=== PATIENT | female | born 1975 | race Caucasian/White ===

== ENCOUNTER 2016-11-03 15:59 | Emergency (ER) | payer MEDICAID ==
[2016-11-03] MEDS ORDERED: DIPHENOX/ATROPINE 2.5/0.025 MG TABLET PO STA (17:43)
[2016-11-03] MEDS ORDERED: traMADol 50 MG TABLET PO STA (17:43)
[2016-11-03] MEDS ORDERED: traMADol 50 MG TABLET PO ONE (17:45)
[2016-11-03] MEDS ORDERED: DIPHENOX/ATROPINE 2.5/0.025 MG TABLET PO ONE (17:45)
== END 2016-11-03 18:02 | disposition home or self-care (01) ==
DX: R19.7 Diarrhea, unspecified (principal); R10.9 Unspecified abdominal pain; K02.9 Dental caries, unspecified; F17.200 Nicotine dependence, unspecified, uncomplicated
CPT/HCPCS: 87045; 87046; 87077; 99283; A9270

== ENCOUNTER 2016-11-06 13:35 | Emergency (ER) | payer MEDICAID ==
[2016-11-06] MEDS ORDERED: DICYCLOMINE 10 MG CAPSULE PO STA (14:11)
[2016-11-06] MEDS ORDERED: GABAPENTIN 100 MG CAPSULE PO STA (14:11)
[2016-11-06] MEDS ORDERED: DIPHENOX/ATROPINE 2.5/0.025 MG TABLET PO STA (14:11)
[2016-11-06] MEDS ORDERED: oxyCOD/ACETAMIN 5 MG/325 MG TABLET PO ONE (14:21)
[2016-11-06] MEDS ORDERED: DIPHENOX/ATROPINE 2.5/0.025 MG TABLET PO ONE (14:21)
[2016-11-06] MEDS ORDERED: DICYCLOMINE 10 MG CAPSULE PO ONE (14:21)
[2016-11-06] MEDS: oxyCOD/ACETAMIN 5 MG/325 MG TABLET PO STA (14:23)
[2016-11-06] MEDS ORDERED: GABAPENTIN 400 MG CAPSULE PO STA (14:23)
== END 2016-11-06 14:55 | disposition home or self-care (01) ==
DX: R10.9 Unspecified abdominal pain (principal); R19.7 Diarrhea, unspecified; G89.29 Other chronic pain; F17.200 Nicotine dependence, unspecified, uncomplicated
CPT/HCPCS: 99283; A9270

== ENCOUNTER 2016-11-20 17:33 | Emergency (ER) | payer MEDICAID ==
[2016-11-20] MEDS ORDERED: oxyCOD/ACETAMIN 5 MG/325 MG TABLET PO STA (19:01)
[2016-11-20] MEDS ORDERED: oxyCOD/ACETAMIN 5 MG/325 MG TABLET PO ONE (19:24)
[2016-11-20] MEDS ORDERED: IOPAMIDOL-300 100 ML VIAL IVP ONE (20:16)
[2016-11-20] MEDS ORDERED: GI COCKTAIL 120 ML BOTTLE PO STA (20:34)
[2016-11-20] MEDS ORDERED: LIDOCAINE VISCOUS 2% 15 ML UDC MM STA (20:43)
[2016-11-20] MEDS ORDERED: MAG HYDROX/AL HYDROX/SIMETH 30 ML UDC PO STA (20:43)
[2016-11-20] MEDS ORDERED: LIDOCAINE VISCOUS 2% 15 ML UDC MM ONE (20:50)
[2016-11-20] MEDS ORDERED: MAG HYDROX/AL HYDROX/SIMETH 30 ML UDC ONE (20:50)
== END 2016-11-20 21:42 | disposition home or self-care (01) ==
DX: R10.32 Left lower quadrant pain (principal); D72.829 Elevated white blood cell count, unspecified; K58.9 Irritable bowel syndrome, unspecified; M79.7 Fibromyalgia; Z90.710 Acquired absence of both cervix and uterus; F17.200 Nicotine dependence, unspecified, uncomplicated
CPT/HCPCS: 36415; 74177; 80053; 81003; 83690; 85025; 99283; 99284; A9270; Q9967

== ENCOUNTER 2016-12-14 13:34 | Emergency (ER) | payer MEDICAID ==
--- NOTE | 2016-12-14 14:18 | ED Physician Documentation ---
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 She is able walk and bear weight. No other injuries.) Review of Systems Constitutional: denies: Fever, Chills GI: denies: Abdominal Pain, Nausea : reports: Hysterectomy. denies: Now [facility] PD PAST MEDICAL HISTORY - Past Medical History Cardiovascular: None Respiratory: Pneumonia Neuro: None Endocrine/Autoimmune: Other GI: Other ACCOUNT LIAISON: Ovarian cysts HEENT: None Psych: Depression Musculoskeletal: Osteoarthritis, Fibromyalgia - Past Surgical History Past Surgical History: Yes /ACCOUNT LIAISON: Hysterectomy, Oophrectomy - Present Medications Home Medications: Ambulatory Orders Medication Instructions Recorded Confirmed Gabapentin [Neurontin] 1,600 mg PO TID 11/02/15 11/06/16 Albuterol Sulfate [Ventolin Hfa] 2 puffs IH Q6H PRN #1 hfa.aer.ad 04/03/1611/06 Dicyclomine [Bentyl] 20 mg PO QID PRN #20 capsule 11/03/16 11/06/16 Cyclobenzaprine HCl 11/20/16 Hyoscyamine Sulfate [Levsin-Sl] 0.125 mg SL Q6H PRN #15 tab.subl 11/20/16 Meloxicam [Mobic] 7.5 mg PO BIDWM PRN #15 tablet 11/20/16 - Allergies Allergies/Adverse Reactions: Allergies Allergy/AdvReac Type Severity Reaction Status Date / Time codeine [Codeine] Allergy Mild swelling/it Verified 11/06/16 13:41 ch NSAIDS (Non-Steroidal Allergy Unknown Verified 11/06/16 13:41 Anti-Inflamma - Social History Does the pt smoke?: Yes Smoking Status: Current every day smoker Does the pt drink ETOH?: No Does the pt have substance abuse?: No - Immunizations Immunizations are current?: Yes - POLST Patient has POLST: No PD ED PE NORMAL - Vitals Vital signs reviewed: Yes - General General: Alert and oriented X 3, No acute distress - Derm Derm: Normal color, Warm and dry - Extremities Extremities: Other (The knee is diffusely tender without an effusion. I think I do feel some MCL laxity and I am unable to check grind testing due to pain.) - Neuro Neuro: Alert and oriented X 3, Normal speech - Psych Psych: Normal mood, Normal affect Results - Vitals Vitals: Vital Signs - 24 hr 12/14/16 13:41 Temperature 37.4 C Heart Rate 103 H Respiratory 20 Rate Blood Pressure 117/83 H O2 Saturation 99 Oxygen O2 Source Room air PD MEDICAL DECISION MAKING - ED course Complexity details: reviewed old records (frequent ED visits with many concerns for drug seeking behavior) Departure - Departure Disposition: Home, Self Care Clinical Impression: Contusion of right knee Qualifiers: Encounter type: initial encounter Qualified Code(s): S80.01XA - Contusion of right knee, initial encounter Condition: Good Record reviewed to determine appropriate education?: Yes Instructions: ED Knee Pain [facility] Follow-Up: [facility] [Provider Group] - Within 1 week Comments: Your blood pressure was elevated today on check in to the emergency department. This does not mean that you have hypertension, it is a common phenomenon to check into the emergency department and have elevated blood pressure. I recommend that you see your primary care physician within the week to have it rechecked when you're feeling better.
[2016-12-14] MEDS ORDERED: HYDROcod/ACETAM 5/325 MG TABLET ONE (14:23)
[2016-12-14] MEDS: HYDROcod/ACETAM 5/325 MG TABLET PO STA (14:30)
[2016-12-14] MEDS: oxyCOD/ACETAMIN 5 MG/325 MG TABLET PO STA (14:30)
--- NOTE | 2016-12-14 15:08 | XRAY Preliminary Report ---
Exam: XR Knee 4 View RT IMPRESSION: Mild patellar spurring. Otherwise negative. [facility] SITE ID: [id number]
--- NOTE | 2016-12-14 15:11 | XRAY Report ---
EXAM: Right Knee Radiography EXAM DATE: 12/14/2016 02:21 PM. CLINICAL HISTORY: Knee pain, injury. COMPARISON: 02/09/2016. TECHNIQUE: 4 views. FINDINGS: Bones: There is mild spurring and ossification of the superior lateral aspect of the patella. No mireille ical step-off or fracture. No destructive bony abnormality. Joints: Alignment and joint space appears normal. No joint effusion. Soft Tissues: Normal. No soft tissue swelling. IMPRESSION: Mild patellar spurring. Otherwise negative. [facility] Referring Provider Line: [phone] SITE ID: [id number]
[2016-12-14 15:33] VITALS: BP 123/85
== END 2016-12-14 15:33 | disposition home or self-care (01) ==
LOC: ED 13:34
DX: S80.01XA Contusion of right knee, initial encounter (principal); W01.0XXA Fall on same level from slipping, tripping and stumbling without subsequent striking against object, initial encounter; Y92.019 Unspecified place in single-family (private) house as the place of occurrence of the external cause; M76.51 Patellar tendinitis, right knee; M19.90 Unspecified osteoarthritis, unspecified site; M79.7 Fibromyalgia; F17.200 Nicotine dependence, unspecified, uncomplicated
CPT/HCPCS: 99283

== ENCOUNTER 2017-02-13 05:24 | Outpatient (CLI) | payer MEDICAID | END 2017-02-13 05:25 | disposition critical access hospital (66) | DX: R06.02 Shortness of breath (principal); R05 Cough | CPT/HCPCS: A0425; A0429 ==

== ENCOUNTER 2017-02-13 05:44 | Emergency (ER) | payer MEDICAID ==
[2017-02-13 05:51] VITALS: BP 121/96
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
--- NOTE | 2017-02-13 06:54 | XRAY Preliminary Report ---
Exam: XR Chest 2 View PA/LAT IMPRESSION: 1. Bronchial wall thickening. This can be seen with bronchitis or reactive airways disease. 2. Focal right middle lobe opacity suspicious for pneumonia. [facility] SITE ID: [id number]
--- NOTE | 2017-02-13 06:56 | XRAY Report ---
EXAM: CHEST RADIOGRAPHY EXAM DATE: 02/13/2017 06:42 AM. CLINICAL HISTORY: Cough, dyspnea. COMPARISON: None. TECHNIQUE: 2 views. FINDINGS: Lungs/Pleura: Bronchial wall thickening. Right middle lobe infiltrate. Large lung volumes. No signifi cant pleural effusion. No pneumothorax. Mediastinum: Heart and mediastinal contours are unremarkable. Other: None. IMPRESSION: 1. Bronchial wall thickening. This can be seen with bronchitis or reactive airways disease. 2. Focal right middle lobe opacity suspicious for pneumonia. [facility] Referring Provider Line: [phone] SITE ID: [id number]
[2017-02-13] MEDS ORDERED: GABAPENTIN 100 MG CAPSULE PO STA (07:18)
[2017-02-13] MEDS ORDERED: DICYCLOMINE 10 MG CAPSULE PO STA (07:19)
[2017-02-13] MEDS ORDERED: AMOX/CLAV 875 MG/125 MG TABLET PO STA (07:19)
[2017-02-13] MEDS ORDERED: DICYCLOMINE 10 MG CAPSULE PO ONE (07:32)
[2017-02-13] MEDS ORDERED: AMOX/CLAV 875 MG/125 MG TABLET PO ONE (07:32)
[2017-02-13] MEDS ORDERED: GABAPENTIN 300 MG CAPSULE ONE (07:33)
== END 2017-02-13 07:55 | disposition home or self-care (01) ==
LOC: EDUNIT# → ED 05:44
DX: J18.9 Pneumonia, unspecified organism (principal); M19.90 Unspecified osteoarthritis, unspecified site; M79.7 Fibromyalgia; F17.200 Nicotine dependence, unspecified, uncomplicated
CPT/HCPCS: 71020; 99283

== ENCOUNTER 2017-04-04 20:11 | Outpatient (CLI) | payer MEDICAID | END 2017-04-04 20:12 | disposition EMS.NT | LOC: EMS 20:11 | PROVIDERS: ATTEND Surgery | DX: M54.2 Cervicalgia (principal) ==

== ENCOUNTER 2017-05-13 18:54 | Outpatient (CLI) | payer MEDICAID | END 2017-05-13 18:55 | disposition critical access hospital (66) | LOC: EMS 18:54 | PROVIDERS: ATTEND Surgery | DX: R50.9 Fever, unspecified (principal) | CPT/HCPCS: A0425; A0429 ==

== ENCOUNTER 2017-05-13 19:10 | Emergency (ER) | payer MEDICAID ==
[2017-05-13 19:23] VITALS: BP 116/79
[2017-05-13] MEDS ORDERED: SULFAMETH/TRIMETH DS 800/160 MG TABLET PO STA (19:50)
--- NOTE | 2017-05-13 19:52 | ED Physician Documentation ---
History of Present Illness - Stated complaint Stated Complaint: SORES/MRSA - Chief complaint Chief Complaint: Wound - History obtained from History obtained from: Patient - History of Present Illness Timing: How many days ago (several) Pain level max: 0 Pain level now: 0 Improved by: nothing Worsened by: nothing - Treatment prior to arrival Treatment prior to arrival: Patient is a 42-year-old female who states that she has recurrent sores all over her body, mainly on the right side of her neck, the bilateral arms. Denies any fever. Has spent the last 8 days in correction. States has a history of similar infections with MRSA. 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: Hysterectomy, Oophrectomy - Present Medications Home Medications: Ambulatory Orders Medication Instructions Recorded Confirmed Gabapentin [Neurontin] 1,600 mg PO TID 11/02/15 02/13/17 Albuterol Sulfate [Ventolin Hfa] 2 puffs IH Q6H PRN #1 hfa.aer.ad 04/03/1602/13 Dicyclomine [Bentyl] 20 mg PO QID PRN #20 capsule 11/03/16 02/13/17 Cyclobenzaprine HCl 11/20/16 Hyoscyamine Sulfate [Levsin-Sl] 0.125 mg SL Q6H PRN #15 tab.subl 11/20/16 Amox/Clav 875/125 [Augmentin 1 tab PO BID #13 tablet 02/13/17 875/125] Sulfamethox/Trimeth 800/160 1 each PO BID #14 tablet 05/13/17 [Bactrim Ds 800/160] - Allergies Allergies/Adverse Reactions: Allergies Allergy/AdvReac Type Severity Reaction Status Date / Time codeine [Codeine] Allergy Mild swelling/it Verified 11/06/16 13:41 ch NSAIDS (Non-Steroidal Allergy Unknown Verified 11/06/16 13:41 Anti-Inflamma - Social History Does the pt smoke?: Yes Smoking Status: Current every day smoker Does the pt drink ETOH?: No Does the pt have substance abuse?: No - Immunizations Immunizations are current?: Yes - POLST Patient has POLST: No PD ED PE NORMAL - Vitals Vital signs reviewed: Yes - General General: Alert and oriented X 3, No acute distress - HEENT HEENT: Moist mucous membranes - Neck Neck: Supple, no meningeal sign - Cardiac Cardiac: RRR - Respiratory Respiratory: No respiratory distress, Clear bilaterally - Abdomen Abdomen: Soft, Non tender - Derm Derm: Warm and dry - Extremities Extremities: Other (Multiple small open sores with surrounding mild cellulitis mainly along the bilateral forearms in the right, posterior aspect of the neck. No drainable abscesses.) - Neuro Neuro: Alert and oriented X 3 - Psych Psych: Normal mood, Normal affect Results - Vitals Vitals: Vital Signs - 24 hr 05/13/17 19:20 Temperature 37 C Heart Rate 104 H Respiratory 12 Rate Blood Pressure 116/79 O2 Saturation 98 Oxygen O2 Source Room air PD MEDICAL DECISION MAKING - ED course Complexity details: considered differential, d/w patient ED course: Patient with multiple sores, concern for secondary MRSA infection. Will place on Bactrim. She has chlorhexidine to bathe herself in as well. She is well- appearing, nontoxic. Afebrile. Patient counseled regarding signs and symptoms for which I believe and urgent re-evaluation would be necessary. Patient with good understanding of and agreement to plan and is comfortable going home at this time This document was made in part using voice recognition software. While efforts are made to proofread this document, sound alike and grammatical errors may occur. Departure - Departure Disposition: 01 Home, Self Care Clinical Impression: Cellulitis Qualifiers: Site of cellulitis: unspecified site Qualified Code(s): L03.90 - Cellulitis, unspecified Condition: Good Instructions: ED Infec Skin Cellulitis Follow-Up: Norma Treviño MD [Primary Care Provider] - Within 1 week Prescriptions: Sulfamethox/Trimeth 800/160 [Bactrim Ds 800/160] 1 each PO BID #14 tablet Comments: Take all antibiotics until gone. Return if you worsen. Discharge Date/Time: 05/13/17 20:03
[2017-05-13] MEDS ORDERED: SULFAMETH/TRIMETH DS 800/160 MG TABLET PO ONE (20:02)
== END 2017-05-13 20:03 | disposition home or self-care (01) ==
LOC: EDUNIT# → EDBD → ED 19:10
DX: L03.90 Cellulitis, unspecified (principal); M79.7 Fibromyalgia; M19.90 Unspecified osteoarthritis, unspecified site; F17.200 Nicotine dependence, unspecified, uncomplicated
CPT/HCPCS: 99283; A9270

== ENCOUNTER 2017-07-23 14:09 | Emergency (ER) | payer MEDICAID ==
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
[2017-07-23] MEDS ORDERED: LIDOCAINE OINTMENT 5% 35.44 GM TUBE TOP STA (14:50)
[2017-07-23] MEDS ORDERED: DOXYCYCLINE 100 MG TABLET PO STA (14:50)
[2017-07-23] MEDS ORDERED: HYDROcod/ACETAM 5/325 MG TABLET PO STA (14:50)
[2017-07-23] MEDS ORDERED: MAG HYDROX/AL HYDROX/SIMETH 30 ML UDC PO STA (14:50)
[2017-07-23] MEDS ORDERED: HYDROcod/ACETAM 5/325 MG TABLET ONE (15:02)
[2017-07-23] MEDS ORDERED: DOXYCYCLINE 100 MG TABLET PO ONE (15:02)
[2017-07-23] MEDS ORDERED: MAG HYDROX/AL HYDROX/SIMETH 30 ML UDC ONE (15:03)
[2017-07-23] MEDS ORDERED: LIDOCAINE OINTMENT 5% 35.44 GM TUBE ONE (15:03)
[2017-07-23 15:29] LABS: BASOPHILS # (AUTO) 0.1 10^3/uL (0.0-0.1); BASOPHILS % (AUTO) 0.4 %; EOSINOPHILS # (AUTO) 0.2 10^3/uL (0.0-0.7); HCT - HEMATOCRIT 39.9 % (37.0-47.0); HGB - HEMOGLOBIN 13.5 g/dL (12.0-16.0); LYMPHOCYTES # (AUTO) 2.4 10^3/uL (1.5-3.5); LYMPHOCYTES % (AUTO) 13.1 %; MEAN CORPUSCULAR HEMOGLOBIN 29.2 pg (27.0-31.0); MEAN CORPUSCULAR HGB CONC 33.8 g/dL (32.0-36.0); MEAN CORPUSCULAR VOLUME 86.5 fL (81.0-99.0); MEAN PLATELET VOLUME 7.6 fL (7.9-10.8); MONOCYTES # (AUTO) 1.1 10^3/uL (0.0-1.0); MONOCYTES % (AUTO) 6.2 %; NEUTROPHILS # (AUTO) 14.4 10^3/uL (1.5-6.6); NEUTROPHILS % (AUTO) 79.3 %; RED BLOOD COUNT 4.62 10^6/uL (4.20-5.40); RED CELL DISTRIBUTION WIDTH 14.2 % (12.0-15.0); UNCORRECTED WHITE BLOOD COUNT 18.2 x10^3/uL; WHITE BLOOD COUNT 18.2 x10^3/uL (4.8-10.8)
[2017-07-23 15:43] LABS: ACETAMINOPHEN < 10 ug/mL (10-30); ALBUMIN/GLOBULIN RATIO 1.3 (1.0-2.2); BILIRUBIN,TOTAL 0.6 mg/dL (0.2-1.0); BUN - BLOOD UREA NITROGEN 23 mg/dL (6-20); CARBON DIOXIDE - CO2 27 mmol/L (21-32); CHLORIDE 102 mmol/L (101-111); CREATININE 0.6 mg/dL (0.4-1.0); GFR - MDRD 110 (>89); GLUCOSE 111 mg/dL (70-100); LIPASE 30 U/L (22-51); POTASSIUM 4.2 mmol/L (3.5-5.0); SALICYLATE < 6.0 mg/dL; SODIUM 136 mmol/L (135-145); TOTAL PROTEIN 8.3 g/dL (6.7-8.2)
[2017-07-23 16:18] LABS: BILIRUBIN,URINE NEGATIVE (NEGATIVE); PH,URINE 6.5 PH (5.0-7.5)
[2017-07-23 16:35] LABS: UA w/ MICROSCOPIC CHARGE YES
[2017-07-23 16:36] LABS: HCG UR QUAL NEGATIVE
[2017-07-23 16:44] LABS: UR CULTURE IF IND NOT INDICATED; WBC,URINE 0-3 /HPF (0-5)
[2017-07-23 17:07] VITALS: BP 128/80
== END 2017-07-23 17:21 | disposition home or self-care (01) ==
LOC: ED 14:09
DX: L08.9 Local infection of the skin and subcutaneous tissue, unspecified (principal); M79.672 Pain in left foot; M79.671 Pain in right foot; Z59.0 Homelessness; F17.200 Nicotine dependence, unspecified, uncomplicated
CPT/HCPCS: 36415; 80053; 80306; 80307; 80320; 80329; 81001; 81025; 83690; 84443; 85025; 99283; A9270; 81003; 87086

== ENCOUNTER 2017-11-20 00:34 | Emergency (ER) | payer MEDICAID ==
--- NOTE | 2017-11-20 02:09 | ED Physician Documentation ---
History of Present Illness - Stated complaint Stated Complaint: FEELING COLD - Chief complaint Chief Complaint: General - History obtained from History obtained from: Patient - History of Present Illness Timing: Today - Additonal information Additional information: patient is a 42 year old homeless female who got caught in the rain and is presenting to the emergency department for being cold. Patient denies any trauma or other symptoms. Review of Systems Constitutional: reports: Chills. denies: Fever Eyes: denies: Discharge, Irritation Ears: reports: Reviewed and negative Nose: reports: Reviewed and negative Throat: reports: Reviewed and negative Cardiac: denies: Chest pain / pressure Respiratory: reports: Cough GI: denies: Nausea, Vomiting : reports: Reviewed and negative Skin: reports: Rash Musculoskeletal: reports: Extremity pain, Extremity swelling Neurologic: reports: Reviewed and negative Psychiatric: reports: Anxiety, Insomnia PD PAST MEDICAL HISTORY - Past Medical History Past Medical History: Yes Cardiovascular: None Respiratory: Pneumonia Neuro: None Endocrine/Autoimmune: Other 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: Ovarian cysts HEENT: None Psych: Depression Musculoskeletal: Osteoarthritis, Fibromyalgia - Past Surgical History Past Surgical History: Yes /INSTRUCTION ASSISTANT PRINCIPAL: Hysterectomy, Oophrectomy - Present Medications Home Medications: Ambulatory Orders Medication Instructions Recorded Confirmed Gabapentin [Neurontin] 1,600 mg PO TID 11/02/15 02/13/17 Albuterol Sulfate [Ventolin Hfa] 2 puffs IH Q6H PRN #1 hfa.aer.ad 04/03/1602/13 Dicyclomine [Bentyl] 20 mg PO QID PRN #20 capsule 11/03/16 02/13/17 Cyclobenzaprine HCl 11/20/16 Doxycycline Monohydrate 100 mg PO BID #14 tablet 07/23/17 Lanolin 1 applic TP BID #397 oint...g. 07/23/17 Nystatin 1 applic TP BID #60 g 07/23/17 - Allergies Allergies/Adverse Reactions: Allergies Allergy/AdvReac Type Severity Reaction Status Date / Time codeine [Codeine] Allergy Mild swelling/it Verified 11/20/17 00:51 ch NSAIDS (Non-Steroidal Allergy Unknown Verified 11/20/17 00:51 Anti-Inflamma - Social History Does the pt smoke?: Yes Smoking Status: Current every day smoker Does the pt drink ETOH?: No Does the pt have substance abuse?: No - Immunizations Immunizations are current?: Yes - POLST Patient has POLST: No PD ED PE NORMAL - Vitals Vital signs reviewed: Yes - General General: Alert and oriented X 3, No acute distress - HEENT HEENT: Atraumatic, Moist mucous membranes - Neck Neck: Supple, no meningeal sign - Cardiac Cardiac: RRR - Respiratory Respiratory: No respiratory distress - Abdomen Abdomen: Soft PD ED PE EXPANDED - Derm Derm: Warm and dry, Pick león. No: Abscess - Extremities Extremities: Right foot, Left foot (mild trench foot of both feet, no superimposed infection) Results - Vitals Vitals: Vital Signs - 24 hr 11/20/17 11/20/17 00:35 01:43 Temperature 36.6 C Heart Rate 98 95 Respiratory 18 16 Rate Blood Pressure 152/112 H 121/81 H O2 Saturation 95 98 Oxygen O2 Source Room air PD MEDICAL DECISION MAKING - ED course Complexity details: reviewed old records, re-evaluated patient, considered differential, d/w patient ED course: Patient was seen and examined at bedside. patient's wet close had been removed and she was given warm blankets and dry socks. Patient's vital signs normalized and patient was stable for discharge with outpatient follow up. Departure - Departure Disposition: 01 Home, Self Care Clinical Impression: Trench feet Condition: Good Instructions: ED Hypothermia Prevention Follow-Up: [facility] [Provider Group] Comments: Your symptoms today are due to wet feet. it is important that you try to stay dry and change your socks regularly. You should follow up with the clinic for regular care.
[2017-11-20 02:43] VITALS: BP 125/68
== END 2017-11-20 02:44 | disposition home or self-care (01) ==
LOC: ED 00:34
DX: T69.022A Immersion foot, left foot, initial encounter (principal); T69.021A Immersion foot, right foot, initial encounter; X31.XXXA Exposure to excessive natural cold, initial encounter; F17.200 Nicotine dependence, unspecified, uncomplicated
CPT/HCPCS: 99281; 99283

== ENCOUNTER 2017-12-10 12:58 | Emergency (ER) | payer MEDICAID ==
[2017-12-10 13:11] VITALS: BP 130/79
[2017-12-10] MEDS ORDERED: CYCLOBENZAPRINE 10 MG TABLET PO STA (13:34)
[2017-12-10] MEDS ORDERED: GABAPENTIN 100 MG CAPSULE PO STA (13:34)
--- NOTE | 2017-12-10 13:37 | ED Physician Documentation ---
History of Present Illness - Stated complaint Stated Complaint: SHOULDER PX - Chief complaint Chief Complaint: General - History obtained from History obtained from: Patient - History of Present Illness Timing: Other (42-year-old woman who is homeless and has fibromyalgia with multiple complaints including 2 weeks worth of productive cough and shortness of breath without fevers. She is cold all the time but she is on the streets so I still doubt fevers. She also had her routine medications including gabapentin, Cymbalta and Flexeril stolen about a week and a half ago because of lack of transportation and her doctor being in [place] in a public clinic she has poor access to follow-up. 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: Ovarian cysts HEENT: None Psych: Depression Musculoskeletal: Osteoarthritis, Fibromyalgia - Past Surgical History Past Surgical History: Yes /POCKET MAKER: Hysterectomy, Oophrectomy - Present Medications Home Medications: Ambulatory Orders Medication Instructions Recorded Confirmed Gabapentin [Neurontin] 1,600 mg PO TID 11/02/15 02/13/17 Albuterol Sulfate [Ventolin Hfa] 2 puffs IH Q6H PRN #1 hfa.aer.ad 04/03/1602/13 Dicyclomine [Bentyl] 20 mg PO QID PRN #20 capsule 11/03/16 02/13/17 Cyclobenzaprine HCl 11/20/16 Doxycycline Monohydrate 100 mg PO BID #14 tablet 07/23/17 Lanolin 1 applic TP BID #397 oint...g. 07/23/17 Nystatin 1 applic TP BID #60 g 07/23/17 Albuterol Sulfate [Proventil Hfa 1 - 2 puffs IH Q4H PRN #1 12/10/17 Inhaler] hfa.aer.ad Benzonatate 200 mg PO TID PRN #20 capsule 02/24/18 Cyclobenzaprine [Flexeril] 10 mg PO TID PRN #14 tablet 12/10/17 DULoxetine [Cymbalta] 20 mg PO DAILY #10 capsule 12/10/17 Doxycycline Hyclate 100 mg PO BID #14 tablet 12/10/17 Gabapentin [Neurontin] 2 tab PO TID #40 tablet 12/10/17 Lidocaine Patch 5% [Lidoderm Patch] 1 each TOP DAILY #10 patch 12/10/17 Loperamide [Imodium] 2 mg PO QID PRN #10 capsule 12/10/17 - Allergies Allergies/Adverse Reactions: Allergies Allergy/AdvReac Type Severity Reaction Status Date / Time codeine [Codeine] Allergy Mild swelling/it Verified 12/10/17 13:11 ch NSAIDS (Non-Steroidal Allergy Unknown Verified 12/10/17 13:11 Anti-Inflamma - Social History Does the pt smoke?: Yes Smoking Status: Current every day smoker Does the pt drink ETOH?: No Does the pt have substance abuse?: No - Immunizations Immunizations are current?: Yes - POLST Patient has POLST: No PD ED PE NORMAL - Vitals Vital signs reviewed: Yes - General General: Alert and oriented X 3, No acute distress - HEENT HEENT: PERRL, EOMI - Neck Neck: Supple, no meningeal sign, No bony TTP - Cardiac Cardiac: RRR, No murmur - Respiratory Respiratory: Other (Slightly diminished throughout with diffuse wheezing and rhonchi but no focal findings.) - Abdomen Abdomen: Normal bowel sounds, Soft, Non tender - Extremities Extremities: Other (Slight tenderness across the top of the left shoulder and decreased range of motion in the sense that she cannot abduct it past about 90 and has painful external rotation, but no deformity.) - Neuro Neuro: Alert and oriented X 3, Normal speech - Psych Psych: Normal mood, Normal affect Results - Vitals Vitals: Vital Signs - 24 hr 12/10/17 13:03 Temperature 36.7 C Heart Rate 90 Respiratory 16 Rate Blood Pressure 130/79 O2 Saturation 98 Oxygen O2 Source Room air PD MEDICAL DECISION MAKING - ED course ED course: 42-year-old homeless woman presents to the emergency department requesting medication refills and exacerbation of chronic bronchitis and shoulder pain probably due to fibromyalgia with an exam not necessitating x-rays. Meds were refilled and she also requested lidocaine patch and something for the cough which is reasonable. Primary care follow-up was advised. Departure - Departure Disposition: 01 Home, Self Care Clinical Impression: Bronchitis Left shoulder pain Qualifiers: Chronicity: acute Qualified Code(s): M25.512 - Pain in left shoulder Condition: Good Record reviewed to determine appropriate education?: Yes Instructions: ED Bronchitis Asthmatic, ED Strain Muscle Ext Prescriptions: Albuterol Sulfate [Proventil Hfa Inhaler] 1 - 2 puffs IH Q4H PRN #1 hfa.aer.ad PRN Reason: Cough Benzonatate 200 mg PO TID PRN #20 capsule PRN Reason: Cough Cyclobenzaprine [Flexeril] 10 mg PO TID PRN #14 tablet PRN Reason: Pain Doxycycline Hyclate 100 mg PO BID #14 tablet DULoxetine [Cymbalta] 20 mg PO DAILY #10 capsule Gabapentin [Neurontin] 2 tab PO TID #40 tablet Lidocaine Patch 5% [Lidoderm Patch] 1 each TOP DAILY #10 patch Loperamide [Imodium] 2 mg PO QID PRN #10 capsule PRN Reason: Diarrhea Comments: Call your doctor to arrange a follow-up appointment, make the next available appointment. In the interim, return anytime if worse or if new symptoms develop.
[2017-12-10] MEDS ORDERED: LOPERAMIDE 2 MG CAPSULE PO STA (13:39)
[2017-12-10] MEDS ORDERED: traMADol 50 MG TABLET PO STA (13:51)
[2017-12-10] MEDS ORDERED: BENZONATATE 100 MG CAPSULE PO STA (13:51)
[2017-12-10] MEDS ORDERED: GABAPENTIN 400 MG CAPSULE ONE (13:52)
== END 2017-12-10 14:02 | disposition home or self-care (01) ==
LOC: ED 12:58
DX: J42 Unspecified chronic bronchitis (principal); M25.512 Pain in left shoulder; M79.7 Fibromyalgia; F17.200 Nicotine dependence, unspecified, uncomplicated; Z59.0 Homelessness
CPT/HCPCS: 99283; A9270

== ENCOUNTER 2018-01-13 15:14 | Emergency (ER) | payer MEDICAID ==
[2018-01-13] MEDS ORDERED: DULoxetine 20 MG CAPSULE PO STA (15:44)
[2018-01-13] MEDS ORDERED: GABAPENTIN 100 MG CAPSULE PO STA (15:45)
[2018-01-13] MEDS ORDERED: GABAPENTIN 300 MG CAPSULE PO STA (15:54)
[2018-01-13] MEDS ORDERED: CYCLOBENZAPRINE 10 MG TABLET PO STA (15:59)
--- NOTE | 2018-01-13 16:55 | ED Physician Documentation ---
History of Present Illness - Stated complaint Stated Complaint: MED REFILL/L ARM PX - Chief complaint Chief Complaint: General - History obtained from History obtained from: Patient - Additonal information Additional information: The patient is a 42-year-old homeless female who presents with left shoulder pain. She reports her left shoulder has been more painful than usual for the past 2 days. She normally takes gabapentin, Flexeril, and Cymbalta but has run out of those medications. She denies any recent traumatic injury. Review of her medical records reveals that she was seen here one month ago with similar presentation. 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 HEENT: None Psych: Depression Musculoskeletal: Osteoarthritis, Fibromyalgia - Past Surgical History Past Surgical History: Yes /PRODUCTION MAINTENANCE MECHANIC: Hysterectomy, Oophrectomy - Present Medications Home Medications: Ambulatory Orders Medication Instructions Recorded Confirmed Gabapentin [Neurontin] 1,600 mg PO TID 11/02/15 02/13/17 Albuterol Sulfate [Ventolin Hfa] 2 puffs IH Q6H PRN #1 hfa.aer.ad 04/03/1602/13 Dicyclomine [Bentyl] 20 mg PO QID PRN #20 capsule 11/03/16 02/13/17 Cyclobenzaprine HCl 11/20/16 Doxycycline Monohydrate 100 mg PO BID #14 tablet 07/23/17 Lanolin 1 applic TP BID #397 oint...g. 07/23/17 Nystatin 1 applic TP BID #60 g 07/23/17 Albuterol Sulfate [Proventil Hfa 1 - 2 puffs IH Q4H PRN #1 12/10/17 Inhaler] hfa.aer.ad Benzonatate 200 mg PO TID PRN #20 capsule 12/10/17 Cyclobenzaprine [Flexeril] 10 mg PO TID PRN #14 tablet 02/24/18 DULoxetine [Cymbalta] 20 mg PO DAILY #10 capsule 12/10/17 Doxycycline Hyclate 100 mg PO BID #14 tablet 12/10/17 Gabapentin [Neurontin] 2 tab PO TID #40 tablet 12/10/17 Lidocaine Patch 5% [Lidoderm Patch] 1 each TOP DAILY #10 patch 12/10/17 Loperamide [Imodium] 2 mg PO QID PRN #10 capsule 12/10/17 Cyclobenzaprine [Flexeril] 10 mg PO TID PRN #20 tablet 01/13/18 DULoxetine [Cymbalta] 20 mg PO DAILY #10 capsule 01/13/18 Gabapentin 2 tab PO BID #30 tablet 01/13/18 traMADol [Ultram] 50 mg PO DAILY PRN #2 tablet 01/13/18 - Allergies Allergies/Adverse Reactions: Allergies Allergy/AdvReac Type Severity Reaction Status Date / Time codeine [Codeine] Allergy Mild swelling/it Verified 01/13/18 15:30 ch NSAIDS (Non-Steroidal Allergy Unknown Verified 01/13/18 15:30 Anti-Inflamma - Social History Does the pt smoke?: Yes Smoking Status: Current every day smoker Does the pt drink ETOH?: No Does the pt have substance abuse?: Yes Substance Use and Type: Meth (occasionally.) - Immunizations Immunizations are current?: Yes - POLST Patient has POLST: No PD ED PE NORMAL - Vitals Vital signs reviewed: Yes (Mild hypertension initially.) - General General: Alert and oriented X 3, Well developed/nourished - HEENT HEENT: Atraumatic, Pharynx benign - Neck Neck: No adenopathy - Cardiac Cardiac: RRR - Respiratory Respiratory: No respiratory distress, Clear bilaterally - Derm Derm: No rash - Extremities Extremities: Other (There is tenderness to palpation of the musculature in the superior, anterior, and deltoid region of the shoulder. There is no bony tenderness to palpation. She does have full range of motion of the shoulder. Distal neurovascular is intact.) - Neuro Neuro: Alert and oriented X 3, No motor deficit, No sensory deficit Results - Vitals Vitals: Oxygen O2 Source Room air PD MEDICAL DECISION MAKING - ED course Complexity details: reviewed old records, re-evaluated patient, considered differential, d/w patient, d/w storage consultant ED course: The patient's presentation is most consistent with a diagnosis of the left shoulder strain. Imaging studies are not clinically indicated at this time given her clinical presentation and the recurrent nature of the patient's symptoms. Treatment in the emergency department included administration of Flexeril, Cymbalta, and gabapentin. I consulted the medical technologist blood bank to confirm that the patient is scheduled for treatment at [facility]. She is being discharged with prescriptions for 10 days of Flexeril, Cymbalta, and gabapentin, and for tramadol, 2 tablets. Departure - Departure Disposition: 01 Home, Self Care Clinical Impression: Fibromyalgia Left shoulder strain Qualifiers: Encounter type: initial encounter Qualified Code(s): S46.912A - Strain of unspecified muscle, fascia and tendon at shoulder and upper arm level, left arm , initial encounter Condition: Stable Instructions: ED Sprain Shoulder Follow-Up: Ben Treviño MD [Primary Care Provider] - Prescriptions: Cyclobenzaprine [Flexeril] 10 mg PO TID PRN #20 tablet PRN Reason: Spasms DULoxetine [Cymbalta] 20 mg PO DAILY #10 capsule Gabapentin 2 tab PO BID #30 tablet traMADol [Ultram] 50 mg PO DAILY PRN #2 tablet PRN Reason: Pain Comments: Follow-up [facility] as planned. You should also follow up with your primary physician within 2 weeks. Call to schedule appointment. Return to the emergency department if you develop markedly increasing pain, numbness or weakness, or otherwise worsening symptoms. Discharge Date/Time: 01/13/18 17:04
[2018-01-13 17:04] VITALS: BP 133/83
== END 2018-01-13 17:04 | disposition home or self-care (01) ==
LOC: ED 15:14
DX: M79.7 Fibromyalgia (principal); S46.912A Strain of unspecified muscle, fascia and tendon at shoulder and upper arm level, left arm, initial encounter; X58.XXXA Exposure to other specified factors, initial encounter; F17.200 Nicotine dependence, unspecified, uncomplicated; Z59.0 Homelessness
CPT/HCPCS: 99283; A9270

== ENCOUNTER 2018-02-01 00:08 | Outpatient (CLI) | payer MEDICAID | END 2018-02-01 00:09 | disposition critical access hospital (66) | LOC: EMS 00:08 | PROVIDERS: ATTEND Surgery | DX: S01.112A Laceration without foreign body of left eyelid and periocular area, initial encounter (principal); M54.2 Cervicalgia; W17.89XA Other fall from one level to another, initial encounter; Y92.89 Other specified places as the place of occurrence of the external cause | CPT/HCPCS: A0425; A0429 ==

== ENCOUNTER 2018-02-01 00:44 | Emergency (ER) | payer MEDICAID ==
[2018-02-01] MEDS ORDERED: ACETAMINOPHEN 325 MG TABLET PO STA (02:04)
--- NOTE | 2018-02-01 02:26 | ED Physician Documentation ---
PD HPI HEAD INJURY - Stated complaint Stated Complaint: FELL - HIT HEAD ON CHAIR - Chief complaint Chief Complaint: Laceration - History obtained from History obtained from: Patient, EMS - History of Present Illness Mechanism of head injury: Fell Where head injury occurred: Alf Timing - onset: Today Location of injury: Left, Front Quality of pain: Pain, Throbbing Associated symptoms: Neck pain. No: LOC, AMS, Amnesia, Nausea / vomiting, Paresthesias, Seizures, Ear drainage, Nasal drainage Symptoms improve with: Rest Symptoms worsen with: Palpation, Movement Contributing factors: No: Anticoagulated Similar symptoms before: Has not had sx before Recently seen: Not recently seen - Additional information Additional information: 43 y/o female well known to this ED (>70 visits in 5 years) was in retirement this evening when she went to get down from the upper bunk she fell and landed striking her face on a stool. She did not have LOC. She does have a laceration to the left forehead and pain over the zygomatic arch. She initially denied neck pain and on arrival she is complaining of neck pain and a headache. No nausea. She has been released from retirement. She was in retirement for a missed court date that she indicates she had an agreement with the liquor inspector about. Review of Systems Constitutional: denies: Fever Eyes: denies: Loss of vision, Decreased vision, Discharge, Irritation Ears: denies: Loss of hearing, Ear pain Nose: reports: Rhinorrhea / runny nose, Congestion Throat: denies: Sore throat Cardiac: denies: Chest pain / pressure, Palpitations Respiratory: denies: Dyspnea, Cough GI: denies: Abdominal Pain, Nausea, Vomiting : denies: Dysuria, Frequency Skin: denies: Rash Musculoskeletal: reports: Neck pain. 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 HEENT: None Psych: Depression Musculoskeletal: Osteoarthritis, Fibromyalgia - Past Surgical History Past Surgical History: Yes /FIRE EXTINGUISHER REPAIRER: Hysterectomy, Oophrectomy - Present Medications Home Medications: Ambulatory Orders Medication Instructions Recorded Confirmed Gabapentin [Neurontin] 1,600 mg PO TID 11/02/15 02/13/17 Albuterol Sulfate [Ventolin Hfa] 2 puffs IH Q6H PRN #1 hfa.aer.ad 04/03/1602/13 Dicyclomine [Bentyl] 20 mg PO QID PRN #20 capsule 11/03/16 02/13/17 Cyclobenzaprine HCl 11/20/16 Doxycycline Monohydrate 100 mg PO BID #14 tablet 07/23/17 Lanolin 1 applic TP BID #397 oint...g. 07/23/17 Nystatin 1 applic TP BID #60 g 07/23/17 Albuterol Sulfate [Proventil Hfa 1 - 2 puffs IH Q4H PRN #1 12/10/17 Inhaler] hfa.aer.ad Benzonatate 200 mg PO TID PRN #20 capsule 12/10/17 Cyclobenzaprine [Flexeril] 10 mg PO TID PRN #14 tablet 12/10/17 DULoxetine [Cymbalta] 20 mg PO DAILY #10 capsule 12/10/17 Doxycycline Hyclate 100 mg PO BID #14 tablet 12/10/17 Gabapentin [Neurontin] 2 tab PO TID #40 tablet 12/10/17 Lidocaine Patch 5% [Lidoderm Patch] 1 each TOP DAILY #10 patch 12/10/17 Loperamide [Imodium] 2 mg PO QID PRN #10 capsule 12/10/17 Cyclobenzaprine [Flexeril] 10 mg PO TID PRN #20 tablet 01/13/18 DULoxetine [Cymbalta] 20 mg PO DAILY #10 capsule 01/13/18 Gabapentin 2 tab PO BID #30 tablet 01/13/18 traMADol [Ultram] 50 mg PO DAILY PRN #2 tablet 01/13/18 - Allergies Allergies/Adverse Reactions: Allergies Allergy/AdvReac Type Severity Reaction Status Date / Time codeine [Codeine] Allergy Mild swelling/it Verified 02/01/18 00:54 ch NSAIDS (Non-Steroidal Allergy Unknown Verified 02/01/18 00:54 Anti-Inflamma - Social History Does the pt smoke?: Yes Smoking Status: Current every day smoker Does the pt drink ETOH?: No Does the pt have substance abuse?: Yes - Immunizations Immunizations are current?: Yes - POLST Patient has POLST: No PD ED PE NORMAL - Vitals Vital signs reviewed: Yes (hypertensive) - General General: Alert and oriented X 3, No acute distress, Well developed/nourished, Other (multiple "pick" león to the face and forearms consistent with mehtamphetamine use disorder. ) - HEENT HEENT: PERRL, EOMI, Ears normal, Moist mucous membranes, Pharynx benign, Dentition benign, Other (There is a 2cm laceration to the left forehead not involving deeper structures. There is tenderness along the left zygomatic arch and the left maxillary sinus. There is no intrapment to the extra-occular movement. There is pain to far lateral gaze. ) - Cardiac Cardiac: RRR, No murmur - Respiratory Respiratory: No respiratory distress, Clear bilaterally - Abdomen Abdomen: Soft, Non tender - Back Back: No CVA TTP, No spinal TTP - Derm Derm: Normal color, Warm and dry, Other (multiple "pick" león to the forearms and face. ) - Extremities Extremities: No deformity, No edema - Neuro Neuro: Alert and oriented X 3, brush painter 2-12 intact, No motor deficit, No sensory deficit, Normal speech Eye Opening: Spontaneous Motor: Obeys Commands Verbal: Oriented GCS Score: 15 - Psych Psych: Normal mood, Normal affect Results - Vitals Vitals: Vital Signs - 24 hr 02/01/18 00:49 Temperature 36.6 C Heart Rate 78 Respiratory 18 Rate Blood Pressure 120/93 H O2 Saturation 100 Oxygen O2 Source Room air - Rads (name of study) CT cervical spine Radiology: Prelim report reviewed (Impression: No cervical spine fracture), EMP read indepedently, See rad report Ct facial bones Radiology: Prelim report reviewed (Impression: No evidence of adnexal facial fracture.), EMP read indepedently, See rad report Procedures - Laceration (location) left forehead Length in cm: 2 Wound type: Irregular, Into subcut fat, Clean Anesthesia: Lidocaine 1% Wound Preparation: Hibiclens, Irrigated copiously NS, Wound explored, To the base Skin layer closure: Dermabond Other: Patient tolerated well, No complications, Neurovascular intact, Dressing applied, Tetanus UTD Complexity: Simple PD MEDICAL DECISION MAKING - ED course Complexity details: reviewed old records, reviewed results, re-evaluated patient , considered differential, d/w patient ED course: 43 y/o female has fallen out of the upper bunk in the retirement onto her face and has a forehead laceration. She has pain in the facial bones and no evidence of fracture on CT scan. Her laceration is cleaned and closed with dermabond. She is given tylenol for pain. Departure - Departure Disposition: 01 Home, Self Care Clinical Impression: Facial laceration Qualifiers: Encounter type: initial encounter Qualified Code(s): S01.81XA - Laceration without foreign body of other part of head, initial encounter Facial contusion Qualifiers: Encounter type: initial encounter Qualified Code(s): S00.83XA - Contusion of other part of head, initial encounter Cervical strain, acute Qualifiers: Encounter type: initial encounter Qualified Code(s): S16.1XXA - Strain of muscle, fascia and tendon at neck level, initial encounter Condition: Stable Instructions: ED Sprain Strain Neck, ED Head Injury Closed, ED Laceration Facial Skin Glue Follow-Up: Ben Treviño MD [Primary Care Provider] -
--- NOTE | 2018-02-01 02:47 | CT Report ---
EXAM: CT MAXILLOFACIAL WITHOUT CONTRAST EXAM DATE: 02/01/2018 02:33 AM. CLINICAL HISTORY: Fall left zygomatic/orbit pain. COMPARISONS: None. TECHNIQUE: Thin-section axial images were acquired of the face without contrast. Post-processing: Cor onal and sagittal reformats. Other: None. In accordance with CT protocol optimization, one or more of the following dose reduction techniques w ere utilized for this exam: automated exposure control, adjustment of mA and/or KV based on patient s ize, or use of iterative reconstructive technique. FINDINGS: Soft Tissue: The infratemporal fossa and parapharyngeal spaces are unremarkable. Orbits: Symmetric and unremarkable. Bones: No evidence of fracture. There are periapical lucencies adjacent to several teeth. Temporomandibular Joints: The temporomandibular joints are symmetric and normally located. Sinuses: Normal. No mucosal thickening or fluid levels. Other: None. IMPRESSION: No evidence of adnexal facial fracture. [facility] Referring Provider Line: [phone] SITE ID: [id number]
--- NOTE | 2018-02-01 03:03 | CT Report ---
EXAM: CT CERVICAL SPINE WITHOUT CONTRAST DATE: 02/01/2018 02:35 AM. HISTORY: Fall facial injury neck pain. COMPARISONS: CT cervical spine 01/30/2014. TECHNIQUE: Thin-section axial images were acquired of the cervical spine without contrast. Post-proce ssing: Coronal and sagittal reformats. Other: None. In accordance with CT protocol optimization, one or more of the following dose reduction techniques w ere utilized for this exam: automated exposure control, adjustment of mA and/or KV based on patient s ize, or use of iterative reconstructive technique. FINDINGS: Alignment: No scoliosis or spondylolisthesis. Bones: No fracture or bone lesion. Interspace Levels/Facets: No CT evidence of central canal and neural foraminal narrowing. Musculature: Normal. No fatty atrophy. Other: The paravertebral and prevertebral soft tissues are unremarkable. The lung apices are clear. IMPRESSION: No evidence of cervical spine fracture. [facility] Referring Provider Line: [phone] SITE ID: [id number]
[2018-02-01] MEDS ORDERED: BUFFERED LIDOCAINE 10 ML SYRINGE SUBQ STA (03:06)
[2018-02-01 05:01] VITALS: BP 127/86
== END 2018-02-01 04:25 | disposition home or self-care (01) ==
LOC: EDBD → EDUNIT# → ED 00:44
DX: S01.81XA Laceration without foreign body of other part of head, initial encounter (principal); S16.1XXA Strain of muscle, fascia and tendon at neck level, initial encounter; W06.XXXA Fall from bed, initial encounter; Y92.143 Cell of prison as the place of occurrence of the external cause; F17.200 Nicotine dependence, unspecified, uncomplicated
CPT/HCPCS: 12011; 70486; 72125; 99283; 99284; A9270

== ENCOUNTER 2018-05-23 01:36 | Outpatient (CLI) | payer MEDICAID | END 2018-05-23 01:37 | disposition critical access hospital (66) | LOC: EMS 01:36 | PROVIDERS: ATTEND Surgery | DX: R07.81 Pleurodynia (principal) | CPT/HCPCS: A0425; A0429; A0999 ==

== ENCOUNTER 2018-05-23 01:53 | Emergency (ER) | payer MEDICAID ==
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
[2018-05-23] MEDS ORDERED: GABAPENTIN 100 MG CAPSULE PO STA (03:08)
[2018-05-23] MEDS ORDERED: CYCLOBENZAPRINE 10 MG TABLET PO STA (03:10)
[2018-05-23] MEDS ORDERED: traMADol 50 MG TABLET PO STA (03:11)
[2018-05-23] MEDS ORDERED: GABAPENTIN 300 MG CAPSULE ONE (03:23)
--- NOTE | 2018-05-23 03:45 | XRAY Report ---
Procedure Date: 05/23/2018 Accession Number: [id number] / [id number] Procedure: XR - Chest 2 View X-Ray CPT Code: 68468 FULL RESULT: EXAM: CHEST RADIOGRAPHY EXAM DATE: 05/23/2018 03:38 AM. CLINICAL HISTORY: Left chest pain. COMPARISON: CHEST 2 VIEW PA/LAT 02/13/2017. TECHNIQUE: 2 views. FINDINGS: Lungs/Pleura: New right basilar infiltrate. No effusion or pneumothorax. Mediastinum: Heart and mediastinal contours are unremarkable. Other: None. IMPRESSION: New right basilar infiltrate. RADIA
[2018-05-23] MEDS ORDERED: BENZONATATE 100 MG CAPSULE PO STA (04:25)
[2018-05-23] MEDS ORDERED: levoFLOXacin 250 MG TABLET PO STA (04:25)
[2018-05-23] MEDS ORDERED: HYDROcod/ACETAM 5/325 MG TABLET PO STA (04:26)
[2018-05-23 05:32] VITALS: BP 122/78
== END 2018-05-23 05:30 | disposition home or self-care (01) ==
LOC: EDUNIT# → ED 01:53 → SUPCPDRO 01:53 → ED 05:30
DX: J18.9 Pneumonia, unspecified organism (principal); F17.200 Nicotine dependence, unspecified, uncomplicated; Z76.0 Encounter for issue of repeat prescription
CPT/HCPCS: 71046; 99283; 99284; A9270

== ENCOUNTER 2018-05-24 19:59 | Emergency (ER) | payer MEDICAID ==
[2018-05-24] MEDS ORDERED: ALBUTEROL NEB 2.5 MG/3 ML INH STA (21:11)
[2018-05-24] MEDS ORDERED: levoFLOXacin 250 MG TABLET PO STA (21:11)
[2018-05-24] MEDS ORDERED: traMADol 50 MG TABLET PO STA (21:12)
[2018-05-24] MEDS ORDERED: BENZONATATE 100 MG CAPSULE PO STA (21:12)
[2018-05-24] MEDS ORDERED: GABAPENTIN 100 MG CAPSULE PO STA (21:13)
--- NOTE | 2018-05-24 21:14 | ED Physician Documentation ---
History of Present Illness - Stated complaint Stated Complaint: SOA - Chief complaint Chief Complaint: General - History obtained from History obtained from: Patient - History of Present Illness Timing: Yesterday (She was seen yesterday and diagnosed with right lower lobe pneumonia. She had a lot of troubles at the pharmacy I guess. She is kind of vague about that but it she has not filled anything. It sounds like at least they will not cover her cough syrup because it is not a preferred brand. She says the other prescriptions are waiting for her.) Review of Systems Constitutional: reports: Sweats. 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 07/23/17 Nystatin 1 applic TP BID #60 g 07/23/17 Albuterol Sulfate [Proventil Hfa 1 - 2 puffs IH Q4H PRN #1 12/10/17 Inhaler] hfa.aer.ad Benzonatate 200 mg PO TID PRN #20 capsule 12/10/17 Cyclobenzaprine [Flexeril] 10 mg PO TID PRN #14 tablet 12/10/17 DULoxetine [Cymbalta] 20 mg PO DAILY #10 capsule 12/10/17 Doxycycline Hyclate 100 mg PO BID #14 tablet 12/10/17 Gabapentin [Neurontin] 2 tab PO TID #40 tablet 12/10/17 Lidocaine Patch 5% [Lidoderm Patch] 1 each TOP DAILY #10 patch 12/10/17 Loperamide [Imodium] 2 mg PO QID PRN #10 capsule 12/10/17 Cyclobenzaprine [Flexeril] 10 mg PO TID PRN #20 tablet 01/13/18 DULoxetine [Cymbalta] 20 mg PO DAILY #10 capsule 01/13/18 Gabapentin 2 tab PO BID #30 tablet 01/13/18 traMADol [Ultram] 50 mg PO DAILY PRN #2 tablet 01/13/18 Albuterol Sulf [Ventolin Hfa 1 - 2 puffs INH Q4HR PRN #1 inhaler 05/23/18 Inhaler] Benzonatate [Tessalon Perle] 100 mg PO TID PRN #20 capsule 05/23/18 Cyclobenzaprine [Flexeril] 10 mg PO TID PRN #20 tablet 05/23/18 DULoxetine [Cymbalta] 20 mg PO DAILY #10 capsule 05/23/18 Gabapentin 1,200 mg PO BID #20 tablet 05/23/18 Hydrocodone/Chlorphen P-Stirex 5 ml PO BID PRN #50 simone.er.12h 05/23/18 [Hydrocodone-Chlorphen ER Susp] Levofloxacin [Levaquin] 500 mg PO DAILY #6 tablet 05/23/18 Hydrocodone Bit/Homatrop Me-Br 5 - 10 ml PO Q6H PRN #120 ml 05/24/18 [Hydrocodone-Homatropine Syrup] - Allergies Allergies/Adverse Reactions: Allergies Allergy/AdvReac Type Severity Reaction Status Date / Time codeine [Codeine] Allergy Mild swelling/it Verified 05/23/18 02:05 ch NSAIDS (Non-Steroidal Allergy Unknown Verified 05/23/18 02:05 Anti-Inflamma - Social History Does the pt smoke?: Yes Smoking Status: Current every day smoker Does the pt drink ETOH?: No Does the pt have substance abuse?: Yes - Immunizations Immunizations are current?: Yes - POLST Patient has POLST: No PD ED PE NORMAL - Vitals Vital signs reviewed: Yes - General General: Alert and oriented X 3, No acute distress, Other (She is a little fidgety, she denies using methamphetamines today.) - Cardiac Cardiac: RRR, No murmur - Respiratory Respiratory: No respiratory distress, Other (Mild rhonchi both bases, nonlabored ) - Abdomen Abdomen: Non tender - Derm Derm: Other (Numerous picked at skin lesions) - Extremities Extremities: No edema, No calf tenderness / cord - Neuro Neuro: Alert and oriented X 3, Normal speech Results - Vitals Vitals: Vital Signs - 24 hr 05/24/18 20:04 Temperature 36.5 C Heart Rate 113 H Respiratory 22 Rate Blood Pressure 113/94 H O2 Saturation 91 L Oxygen O2 Source Room air PD MEDICAL DECISION MAKING - ED course ED course: She has the prescriptions, it is unclear why she has not filled the ones besides cough syrup. They should be covered. Cough syrup probably is not covered and she is given alternative. She is given a second dose of her antibiotics here and her other routine medications which she does not have tonight. - Sepsis Event Vital Signs: Vital Signs - 24 hr 05/24/18 20:04 Temperature 36.5 C Heart Rate 113 H Respiratory 22 Rate Blood Pressure 113/94 H O2 Saturation 91 L Oxygen O2 Source Room air Departure - Departure Disposition: 01 Home, Self Care Clinical Impression: Pneumonia Qualifiers: Pneumonia type: due to unspecified organism Laterality: right Lung location: lower lobe of lung Qualified Code(s): J18.1 - Lobar pneumonia, unspecified organism Condition: Stable Record reviewed to determine appropriate education?: Yes Instructions: ED Pneumonia Adult Prescriptions: Hydrocodone Bit/Homatrop Me-Br [Hydrocodone-Homatropine Syrup] 5 - 10 ml PO Q6H PRN #120 ml PRN Reason: Cough Comments: If nothing else, 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 Return if worsening.
[2018-05-24 22:21] VITALS: BP 147/78
[2018-05-24] MEDS ORDERED: IBUPROFEN 600 MG TABLET PO STA (22:28)
== END 2018-05-24 22:32 | disposition home or self-care (01) ==
LOC: ED 19:59
DX: J18.1 Lobar pneumonia, unspecified organism (principal); Z91.14 Patient's other noncompliance with medication regimen
CPT/HCPCS: 94640; 94664; 99283; A9270

== ENCOUNTER 2018-06-07 15:15 | Emergency (ER) | payer MEDICAID ==
[2018-06-07 15:27] VITALS: BP 124/78
[2018-06-07] MEDS ORDERED: levoFLOXacin 250 MG TABLET PO STA (16:19)
[2018-06-07] MEDS ORDERED: traMADol 50 MG TABLET PO STA (16:19)
--- NOTE | 2018-06-07 16:24 | ED Physician Documentation ---
PD HPI URI - Stated complaint Stated Complaint: COUGH/FEET PX - Chief complaint Chief Complaint: Resp - History obtained from History obtained from: Patient - History of Present Illness Timing - onset: How many weeks ago (2) Timing duration: Weeks (2) Timing details: Gradual onset, Still present, Waxing and waning Associated symptoms: Sore throat, Dry cough, Dyspnea Contributing factors: Other (walking) Improves by: Rest, Medication, MDI/nebulizer Worsened by: Activity Similar symptoms before: Diagnosis (pneumonia) Recently seen: Emergency Dept - Additional information Additional information: 43-year-old female well-known to the emergency department with over 70 visits in the past 5 years has been diagnosed with pneumonia on a chest x-ray, 2 weeks ago, and she was given a dose of Levaquin then and a second goal dose the next day when she lost her scripts. She still has not apparently filled the prescription for the antibiotic. She comes in today with a chief complaint that she continues to have an issue with her cough and she has sore feet they are itchy and smelly. She has been doing a lot of walking and has to stop frequently to catch her breath. The smoke has not been good for her. Review of Systems Constitutional: reports: Chills, Fatigue. denies: Fever Eyes: denies: Decreased vision Ears: reports: Ear pain Nose: reports: Rhinorrhea / runny nose, Congestion Throat: denies: Sore throat Cardiac: denies: Chest pain / pressure, Palpitations Respiratory: reports: Dyspnea, Cough, Wheezing GI: denies: Abdominal Pain, Nausea, Vomiting : denies: Dysuria, Frequency Skin: denies: Rash Musculoskeletal: reports: Extremity pain, Pain with weight bearing. 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 07/23/17 Nystatin 1 applic TP BID #60 g 07/23/17 Albuterol Sulfate [Proventil Hfa 1 - 2 puffs IH Q4H PRN #1 12/10/17 Inhaler] hfa.aer.ad Benzonatate 200 mg PO TID PRN #20 capsule 12/10/17 Cyclobenzaprine [Flexeril] 10 mg PO TID PRN #14 tablet 12/10/17 DULoxetine [Cymbalta] 20 mg PO DAILY #10 capsule 12/10/17 Doxycycline Hyclate 100 mg PO BID #14 tablet 12/10/17 Gabapentin [Neurontin] 2 tab PO TID #40 tablet 12/10/17 Lidocaine Patch 5% [Lidoderm Patch] 1 each TOP DAILY #10 patch 12/10/17 Loperamide [Imodium] 2 mg PO QID PRN #10 capsule 12/10/17 Cyclobenzaprine [Flexeril] 10 mg PO TID PRN #20 tablet 01/13/18 DULoxetine [Cymbalta] 20 mg PO DAILY #10 capsule 01/13/18 Gabapentin 2 tab PO BID #30 tablet 01/13/18 traMADol [Ultram] 50 mg PO DAILY PRN #2 tablet 01/13/18 Albuterol Sulf [Ventolin Hfa 1 - 2 puffs INH Q4HR PRN #1 inhaler 05/23/18 Inhaler] Benzonatate [Tessalon Perle] 100 mg PO TID PRN #20 capsule 05/23/18 Cyclobenzaprine [Flexeril] 10 mg PO TID PRN #20 tablet 05/23/18 DULoxetine [Cymbalta] 20 mg PO DAILY #10 capsule 05/23/18 Gabapentin 1,200 mg PO BID #20 tablet 05/23/18 Hydrocodone/Chlorphen P-Stirex 5 ml PO BID PRN #50 simone.er.12h 05/23/18 [Hydrocodone-Chlorphen ER Susp] Levofloxacin [Levaquin] 500 mg PO DAILY #6 tablet 05/23/18 Hydrocodone Bit/Homatrop Me-Br 5 - 10 ml PO Q6H PRN #120 ml 05/24/18 [Hydrocodone-Homatropine Syrup] Albuterol Sulf [Ventolin Hfa 1 - 2 puffs INH Q4HR PRN #1 inhaler 06/07/18 Inhaler] Cyclobenzaprine [Flexeril] 10 mg PO TID PRN #20 tablet 06/07/18 Gabapentin 1,200 mg PO BID #40 tablet 06/07/18 Levofloxacin [Levaquin] 500 mg PO DAILY #7 tablet 06/07/18 Terbinafine HCl [Terbinafine] 1 gm TP BID #15 cream..g. 06/07/18 - Allergies Allergies/Adverse Reactions: Allergies Allergy/AdvReac Type Severity Reaction Status Date / Time codeine [Codeine] Allergy Mild swelling/it Verified 06/07/18 15:27 ch NSAIDS (Non-Steroidal Allergy Unknown Verified 06/07/18 15:27 Anti-Inflamma - Social History Does the pt smoke?: Yes Smoking Status: Current every day smoker Does the pt drink ETOH?: No Does the pt have substance abuse?: Yes - Immunizations Immunizations are current?: Yes - POLST Patient has POLST: No PD ED PE NORMAL - Vitals Vital signs reviewed: Yes (tachy ) - General General: Alert and oriented X 3, No acute distress, Well developed/nourished - HEENT HEENT: Atraumatic, PERRL, EOMI, Other (The right TM is inflamed and with indistinct landmarks the left is clear. ) - Neck Neck: Supple, no meningeal sign, No bony TTP - Cardiac Cardiac: RRR, No murmur - Respiratory Respiratory: No respiratory distress, Other (diminished breath sounds in the right. 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, No motor deficit, No sensory deficit, Normal speech Eye Opening: Spontaneous Motor: Obeys Commands Verbal: Oriented GCS Score: 15 - Psych Psych: Normal mood, Normal affect Results - Vitals Vitals: Vital Signs - 24 hr 06/07/18 15:24 Temperature 37 C Heart Rate 101 H Respiratory 20 Rate Blood Pressure 124/78 O2 Saturation 97 Oxygen O2 Source Room air PD MEDICAL DECISION MAKING - ED course Complexity details: reviewed results, re-evaluated patient, considered differential, d/w patient ED course: 43 y/o female with multiple medical problems has been diagnosed with pneumonia and she has not completed a course of antibiotic. She gives and incomplete convoluted story of not being able to get her scripts filled or loosing them. She has been walking a lot and is using a pair of good hiking boots but her feet look macerated with blistering and erythema. - Sepsis Event Vital Signs: Vital Signs - 24 hr 06/07/18 15:24 Temperature 37 C Heart Rate 101 H Respiratory 20 Rate Blood Pressure 124/78 O2 Saturation 97 Oxygen O2 Source Room air Departure - Departure Disposition: 01 Home, Self Care Clinical Impression: Otitis media Qualifiers: Otitis media type: suppurative Chronicity: acute Laterality: right Recurrence: not specified as recurrent Spontaneous tympanic membrane rupture: without spontaneous rupture Qualified Code(s): H66.001 - Acute suppurative otitis media without spontaneous rupture of ear drum, right ear Athletes foot Qualifiers: Laterality: bilateral Qualified Code(s): B35.3 - Tinea pedis Condition: Stable Instructions: ED Otitis Media Acute Adult, Terbinafine skin cream gel or topical solution Follow-Up: Ben Treviño MD [Primary Care Provider] - Prescriptions: Albuterol Sulf [Ventolin Hfa Inhaler] 1 - 2 puffs INH Q4HR PRN #1 inhaler PRN Reason: Shortness Of Air/Wheezing Cyclobenzaprine [Flexeril] 10 mg PO TID PRN #20 tablet PRN Reason: Spasms Gabapentin 1,200 mg PO BID #40 tablet Levofloxacin [Levaquin] 500 mg PO DAILY #7 tablet Terbinafine HCl [Terbinafine] 1 gm TP BID #15 cream..g.
[2018-06-07] MEDS ORDERED: GABAPENTIN 100 MG CAPSULE PO STA (16:28)
[2018-06-07] MEDS ORDERED: DEXAMETHASONE 10 MG/ML VIAL PO STA (16:28)
[2018-06-07] MEDS ORDERED: GABAPENTIN 400 MG CAPSULE PO ONE (17:00)
== END 2018-06-07 16:57 | disposition home or self-care (01) ==
LOC: ED 15:15
DX: H66.001 Acute suppurative otitis media without spontaneous rupture of ear drum, right ear (principal); B35.3 Tinea pedis; F17.200 Nicotine dependence, unspecified, uncomplicated; Z91.14 Patient's other noncompliance with medication regimen
CPT/HCPCS: 99283; A9270

== ENCOUNTER 2018-06-19 07:02 | Outpatient (CLI) | payer MEDICAID | END 2018-06-19 07:03 | disposition critical access hospital (66) | LOC: EMS 07:02 | PROVIDERS: ATTEND Surgery | DX: R44.3 Hallucinations, unspecified (principal); Z78.1 Physical restraint status ==

== ENCOUNTER 2018-06-19 07:21 | Emergency (ER) | payer MEDICAID ==
[2018-06-19 07:32] VITALS: BP 142/79
[2018-06-19 07:58] LABS: BASOPHILS # (AUTO) 0.1 10^3/uL (0.0-0.1); BASOPHILS % (AUTO) 0.6 %; HGB - HEMOGLOBIN 12.6 g/dL (12.0-16.0); LYMPHOCYTES # (AUTO) 1.3 10^3/uL (1.5-3.5); LYMPHOCYTES % (AUTO) 11.5 %; MEAN CORPUSCULAR HEMOGLOBIN 30.2 pg (27.0-31.0); MEAN CORPUSCULAR HGB CONC 34.6 g/dL (32.0-36.0); MEAN CORPUSCULAR VOLUME 87.4 fL (81.0-99.0); MEAN PLATELET VOLUME 7.5 fL (7.9-10.8); MONOCYTES # (AUTO) 0.5 10^3/uL (0.0-1.0); MONOCYTES % (AUTO) 4.1 %; NEUTROPHILS # (AUTO) 9.5 10^3/uL (1.5-6.6); NEUTROPHILS % (AUTO) 83.8 %; PLT - PLATELET COUNT 415 10^3/uL (130-450); RED BLOOD COUNT 4.17 10^6/uL (4.20-5.40); RED CELL DISTRIBUTION WIDTH 14.3 % (12.0-15.0); WHITE BLOOD COUNT 11.3 x10^3/uL (4.8-10.8)
[2018-06-19 08:10] LABS: ALBUMIN 4.7 g/dL (3.2-5.5); ALBUMIN/GLOBULIN RATIO 1.6 (1.0-2.2); ALKALINE PHOSPHATASE 92 IU/L (42-121); ALT ALANINE AMINOTRANSFERASE 21 IU/L (10-60); AST ASPARTATE AMINOTRANSFERASE 26 IU/L (10-42); BILIRUBIN,TOTAL 0.6 mg/dL (0.2-1.0); BUN - BLOOD UREA NITROGEN 23 mg/dL (6-20); CALCIUM 9.7 mg/dL (8.5-10.3); CARBON DIOXIDE - CO2 24 mmol/L (21-32); CHLORIDE 103 mmol/L (101-111); CREATININE 0.9 mg/dL (0.4-1.0); GFR - MDRD 69 (>89); GLUCOSE 106 mg/dL (70-100); LIPASE 28 U/L (22-51); SODIUM 138 mmol/L (135-145); TOTAL PROTEIN 7.6 g/dL (6.7-8.2)
== END 2018-06-19 09:30 | disposition left against medical advice (07) ==
LOC: EDUNIT# → ED 07:21
DX: Z53.21 Procedure and treatment not carried out due to patient leaving prior to being seen by health care provider (principal)
CPT/HCPCS: 36415; 80053; 80320; 83690; 84484; 85025; 99282

== ENCOUNTER 2018-08-31 13:18 | Emergency (ER) | payer MEDICAID ==
[2018-08-31] MEDS ORDERED: DEXAMETHASONE 10 MG/ML VIAL PO STA (14:34)
[2018-08-31] MEDS ORDERED: traMADol 50 MG TABLET PO STA (14:35)
--- NOTE | 2018-08-31 14:37 | ED Physician Documentation ---
PD HPI URI - Stated complaint Stated Complaint: COUGH/BILAT EAR PX/SINUS PX - Chief complaint Chief Complaint: Resp - History obtained from History obtained from: Patient - History of Present Illness Timing - onset: How many weeks ago (1) Timing duration: Weeks (1) Timing details: Gradual onset, Still present Associated symptoms: Ear pain, Nasal congestion, Rhinorrhea, Sinus pain, Sore throat, Swollen nodes, Productive cough, Dyspnea Contributing factors: Sick contact Improves by: Rest, Medication, MDI/nebulizer Worsened by: Activity Similar symptoms before: Diagnosis (OM, pneumonia, bronchitis) Recently seen: Not recently seen - Additional information Additional information: 43-year-old homeless female has developed cough and congestion and ear pain and sinus pain sore throat and shortness of breath over the past week. She has had issues with otitis and bronchitis for years and she has frequent infections. She has a lot of visits to the emergency department. She was most recently seen here in May of this year with pneumonia. She has had problems with obtaining her medications and with keeping her medications current on her usual medicatio ns. Review of Systems Constitutional: denies: Fever Eyes: denies: Decreased vision Ears: reports: Ear pain Nose: reports: Rhinorrhea / runny nose, Congestion Throat: reports: Sore throat Cardiac: denies: Chest pain / pressure, Palpitations Respiratory: reports: Dyspnea, Cough GI: denies: Abdominal Pain, Nausea, Vomiting : denies: Dysuria, Frequency PD PAST MEDICAL HISTORY - Past Medical History Cardiovascular: None Respiratory: Pneumonia Endocrine/Autoimmune: Other GI: Other CHIEF SCIENCE OFFICER: Ovarian cysts HEENT: None Psych: Depression Musculoskeletal: Osteoarthritis, Fibromyalgia - Past Surgical History Past Surgical History: Yes /CHIEF SCIENCE OFFICER: Hysterectomy, Oophrectomy - Present Medications Home Medications: Ambulatory Orders Medication Instructions Recorded Confirmed Dicyclomine [Bentyl] 20 mg PO QID PRN #20 capsule 11/03/16 02/13/17 Gabapentin [Neurontin] 2 tab PO TID #40 tablet 12/10/17 Lidocaine Patch 5% [Lidoderm Patch] 1 each TOP DAILY #10 patch 12/10/17 Loperamide [Imodium] 2 mg PO QID PRN #10 capsule 12/10/17 traMADol [Ultram] 50 mg PO DAILY PRN #2 tablet 01/13/18 Cyclobenzaprine [Flexeril] 10 mg PO TID PRN #20 tablet 05/23/18 DULoxetine [Cymbalta] 20 mg PO DAILY #10 capsule 05/23/18 Hydrocodone/Chlorphen P-Stirex 5 ml PO BID PRN #50 simone.er.12h 05/23/18 [Hydrocodone-Chlorphen ER Susp] Hydrocodone Bit/Homatrop Me-Br 5 - 10 ml PO Q6H PRN #120 ml 05/24/18 [Hydrocodone-Homatropine Syrup] Albuterol Sulf [Ventolin Hfa 1 - 2 puffs INH Q4HR PRN #1 inhaler 08/31/18 Inhaler] Benzonatate [Tessalon Perle] 100 - 200 mg PO TID PRN #30 capsule 08/31/18 Gabapentin 1,200 mg PO TID #60 tablet 08/31/18 Hydrocodone/Chlorphen P-Stirex 5 ml PO BID PRN #90 ml 08/31/18 [Hydrocodone-Chlorphen ER Susp] Levofloxacin [Levaquin] 500 mg PO DAILY #10 tablet 08/31/18 - Allergies Allergies/Adverse Reactions: Allergies Allergy/AdvReac Type Severity Reaction Status Date / Time codeine [Codeine] Allergy Mild swelling/it Verified 06/07/18 15:27 ch NSAIDS (Non-Steroidal Allergy Unknown Verified 08/31/18 13:25 Anti-Inflamma - Social History Does the pt smoke?: Yes Smoking Status: Current every day smoker Does the pt drink ETOH?: No Does the pt have substance abuse?: Yes - Immunizations Immunizations are current?: Yes - POLST Patient has POLST: No PD ED PE NORMAL - Vitals Vital signs reviewed: Yes (normal ) - General General: Alert and oriented X 3, No acute distress, Well developed/nourished - HEENT HEENT: Atraumatic, PERRL, EOMI, Other (The right TM is cenrally inflamed with rounding of the landmarks. The left is clear. The pharynx is with marked swelling on the left and inflamation on the right. The left looks like it hurts. ) - Neck Neck: Supple, no meningeal sign, No bony TTP, Other (shoddy adenopathy bilaterally and tender submandibular adenopathy) - Cardiac Cardiac: RRR, No murmur - Respiratory Respiratory: No respiratory distress, Clear bilaterally - Abdomen Abdomen: Soft, Non tender - Back Back: No CVA TTP, No spinal TTP - Derm Derm: Normal color, Warm and dry, No rash - Extremities Extremities: No deformity, No edema - Neuro Neuro: Alert and oriented X 3, specialty person 2-12 intact, No motor deficit, No sensory deficit, Normal speech Eye Opening: Spontaneous Motor: Obeys Commands Verbal: Oriented GCS Score: 15 - Psych Psych: Other (mood is withdrawn and the affect is flat. ) Results - Vitals Vitals: Vital Signs - 24 hr 08/31/18 13:23 Temperature 36.5 C Heart Rate 90 Respiratory 16 Rate Blood Pressure 128/75 O2 Saturation 100 Oxygen O2 Source Room air PD MEDICAL DECISION MAKING - ED course Complexity details: reviewed old records, re-evaluated patient, considered differential, d/w patient ED course: 43-year-old homeless female with an upper respiratory tract infection has bilateral right otitis media and a draining pharyngitis. She is administered Dexamethasone 10 mg here in the emergency department we will place her on some Levaquin as she relates that this was very successful last time and will provide her with an inhaler and some refill of her gabapentin. Departure - Departure Disposition: Home, Self Care Clinical Impression: Otitis media Qualifiers: Otitis media type: suppurative Chronicity: acute Laterality: left Recurrence: not specified as recurrent Spontaneous tympanic membrane rupture: without spontaneous rupture Qualified Code(s): H66.002 - Acute suppurative otitis media without spontaneous rupture of ear drum, left ear Condition: Stable Instructions: ED Otitis Media Acute Adult Follow-Up: Ben Treviño MD [Primary Care Provider] - Prescriptions: Albuterol Sulf [Ventolin Hfa Inhaler] 1 - 2 puffs INH Q4HR PRN #1 inhaler PRN Reason: Shortness Of Air/Wheezing Benzonatate [Tessalon Perle] 100 - 200 mg PO TID PRN #30 capsule PRN Reason: Cough Gabapentin 1,200 mg PO TID #60 tablet Hydrocodone/Chlorphen P-Stirex [Hydrocodone-Chlorphen ER Susp] 5 ml PO BID PRN #90 ml PRN Reason: Cough Levofloxacin [Levaquin] 500 mg PO DAILY #10 tablet
[2018-08-31] MEDS ORDERED: GABAPENTIN 100 MG CAPSULE PO STA (15:06)
[2018-08-31 15:21] VITALS: BP 126/76
[2018-08-31] MEDS ORDERED: GABAPENTIN 400 MG CAPSULE PO SCH (16:00)
== END 2018-08-31 15:20 | disposition home or self-care (01) ==
LOC: ED 13:18
DX: J06.9 Acute upper respiratory infection, unspecified (principal); J02.9 Acute pharyngitis, unspecified; H66.001 Acute suppurative otitis media without spontaneous rupture of ear drum, right ear; Z59.0 Homelessness; Z87.01 Personal history of pneumonia (recurrent); F17.200 Nicotine dependence, unspecified, uncomplicated
CPT/HCPCS: 99283; A9270

== ENCOUNTER 2018-11-07 12:58 | Emergency (ER) | payer MEDICAID ==
[2018-11-07] MEDS ORDERED: CYCLOBENZAPRINE 10 MG TABLET PO STA (13:38)
[2018-11-07] MEDS ORDERED: GABAPENTIN 100 MG CAPSULE PO STA (13:38)
[2018-11-07] MEDS ORDERED: AMOXICILLIN 250 MG CAPSULE PO STA (13:38)
[2018-11-07] MEDS ORDERED: traMADol 50 MG TABLET PO STA (13:38)
[2018-11-07] MEDS ORDERED: BENZONATATE 100 MG CAPSULE PO STA (13:39)
--- NOTE | 2018-11-07 13:42 | ED Physician Documentation ---
History of Present Illness - Stated complaint Stated Complaint: THROAT PX - Chief complaint Chief Complaint: General - History obtained from History obtained from: Patient - History of Present Illness Timing: Other (This is a homeless 43-year-old woman with multiple complaints. Most pressing is that she had a week of sore throat, and a month of left ear pain with painful adenopathy in the inferior auricular area. She also would like refills of all of her medications and has a productive cough. She denies fevers. She does not have access to primary care currently. He would also like a referral to a bench repair technician because of some chronic foot pain and a web site project manager because she thinks she might have lupus.) Review of Systems Constitutional: denies: Fever, Chills, Weight Loss, Sweats Nose: reports: Congestion. denies: Rhinorrhea / runny nose Throat: reports: Sore throat Respiratory: reports: Cough. denies: Dyspnea GI: denies: Abdominal Pain PD PAST MEDICAL HISTORY - Past Medical History Past Medical History: No Cardiovascular: None Respiratory: Pneumonia Neuro: None Endocrine/Autoimmune: Other GI: Other PENSION ADVISER: Ovarian cysts : None HEENT: None Psych: Depression Musculoskeletal: Osteoarthritis, Fibromyalgia - Past Surgical History Past Surgical History: Yes /PENSION ADVISER: Hysterectomy, Oophrectomy - Present Medications Home Medications: Ambulatory Orders Medication Instructions Recorded Confirmed Gabapentin [Neurontin] 2 tab PO TID #40 tablet 12/10/17 Cyclobenzaprine [Flexeril] 10 mg PO TID PRN #20 tablet 05/23/18 DULoxetine [Cymbalta] 20 mg PO DAILY #10 capsule 05/23/18 Amoxicillin 500 mg PO TID #30 capsule 11/07/18 Benzonatate [Tessalon Perle] 100 - 200 mg PO TID PRN #30 capsule 11/07/18 Cyclobenzaprine [Flexeril] 10 mg PO TID PRN #20 tablet 11/07/18 Gabapentin 600 mg PO TID #30 tablet 11/07/18 Hydrocodone/Chlorphen P-Stirex 5 ml PO BID PRN #90 ml 11/07/18 [Hydrocodone-Chlorphen ER Susp] Tramadol HCl [Ultram] 50 mg PO Q4H PRN #10 tablet 11/07/18 - Allergies Allergies/Adverse Reactions: Allergies Allergy/AdvReac Type Severity Reaction Status Date / Time codeine [Codeine] Allergy Mild swelling/it Verified 11/07/18 13:18 ch NSAIDS (Non-Steroidal Allergy Unknown Verified 11/07/18 13:18 Anti-Inflamma - Social History Does the pt smoke?: Yes Smoking Status: Current every day smoker Does the pt drink ETOH?: No Does the pt have substance abuse?: Yes Substance Use and Type: Marijuana - Immunizations Immunizations are current?: Yes - POLST Patient has POLST: No PD ED PE NORMAL - Vitals Vital signs reviewed: Yes - General General: Alert and oriented X 3, No acute distress - HEENT HEENT: Other (Moderate left otitis media with mild tender inferior auricular adenopathy. Lots of picked at skin lesions around the face. Tonsils are mildly red but without exudates or swelling.) - Neck Neck: Supple, no meningeal sign, No bony TTP - Cardiac Cardiac: RRR, No murmur - Respiratory Respiratory: No respiratory distress, Clear bilaterally - Abdomen Abdomen: Non tender - Derm Derm: Other (A lot of picked at skin lesions) Results - Vitals Vitals: Vital Signs - 24 hr 11/07/18 13:08 Temperature 36.4 C L Heart Rate 95 Respiratory 16 Rate Blood Pressure 129/74 O2 Saturation 99 Oxygen O2 Source Room air Departure - Departure Disposition: Home, Self Care Clinical Impression: LOM (left otitis media) Qualifiers: Otitis media type: suppurative Chronicity: acute Recurrence: recurrent Spontaneous tympanic membrane rupture: without spontaneous rupture Qualified Code(s): H66.005 - Acute suppurative otitis media without spontaneous rupture of ear drum, recurrent, left ear Depression Qualifiers: Depression Type: major depressive disorder Major depression recurrence: recurrent Active/Remission status: currently active Major depression episode severity: moderate Qualified Code(s): F33.1 - Major depressive disorder, recurrent, moderate Chronic pain Qualifiers: Chronic pain type: other chronic pain Qualified Code(s): G89.29 - Other chronic pain Condition: Good Record reviewed to determine appropriate education?: Yes Instructions: ED Otitis Media Acute Adult Follow-Up: Jayden Nielsen MD [Physician No Access] - (for lupus workup) Niko West DPM [Physician No Access] - (for your feet) Prescriptions: Amoxicillin 500 mg PO TID #30 capsule Benzonatate [Tessalon Perle] 100 - 200 mg PO TID PRN #30 capsule PRN Reason: Cough Cyclobenzaprine [Flexeril] 10 mg PO TID PRN #20 tablet PRN Reason: Spasms Gabapentin 600 mg PO TID #30 tablet Hydrocodone/Chlorphen P-Stirex [Hydrocodone-Chlorphen ER Susp] 5 ml PO BID PRN #90 ml PRN Reason: Cough Tramadol HCl [Ultram] 50 mg PO Q4H PRN #10 tablet PRN Reason: Pain Comments: As discussed it is imperative to find a primary care physician for ongoing refills, no more refills for chronic medications from the emergency department.
[2018-11-07] MEDS ORDERED: GABAPENTIN 400 MG CAPSULE PO SCH (14:00)
[2018-11-07 14:12] VITALS: BP 145/91
== END 2018-11-07 14:14 | disposition home or self-care (01) ==
LOC: ED 12:58
DX: H66.005 Acute suppurative otitis media without spontaneous rupture of ear drum, recurrent, left ear (principal); L98.8 Other specified disorders of the skin and subcutaneous tissue; M79.673 Pain in unspecified foot; G89.29 Other chronic pain; F33.1 Major depressive disorder, recurrent, moderate; F17.200 Nicotine dependence, unspecified, uncomplicated; Z59.0 Homelessness
CPT/HCPCS: 99283; A9270

== ENCOUNTER 2018-11-15 10:18 | Emergency (ER) | payer MEDICAID ==
[2018-11-15 10:27] VITALS: BP 128/85
[2018-11-15] MEDS ORDERED: IBUPROFEN 800 MG TABLET PO STA (10:52)
[2018-11-15] MEDS ORDERED: SULFAMETH/TRIMETH DS 800/160 MG TABLET PO STA (10:52)
--- NOTE | 2018-11-15 11:20 | ED Physician Documentation ---
PD HPI SKIN - Stated complaint Stated Complaint: BUMP ON FOREHEAD - Chief complaint Chief Complaint: General - History obtained from History obtained from: Patient - History of Present Illness Timing - onset: How many days ago (3) Timing - duration: Days (3) Timing - details: Still present Location: Other (forehead) Quality / character: Painful, Raised, Draining Similar symptoms before: Diagnosis (Past history of abscesses. Denies history of MRSA.) - Additional information Additional information: The patient is a 43-year-old female who presents with an abscess on her forehead. She first noticed redness and swelling 3 days ago, and it is become progressively swollen and tender since that time, and began draining this morning. She reports mild associated headache. She denies fever, visual irritation, sore throat, nausea or vomiting. She has a past history of abscesses, but denies history of MRSA. She adamantly denies IV or IM drug use. She was seen here 8 days ago and was prescribed amoxicillin for otitis media. Review of Systems Constitutional: denies: Fever Eyes: denies: Irritation Ears: denies: Ear pain, Tinnitus/ringing Nose: denies: Congestion Throat: denies: Sore throat Respiratory: denies: Dyspnea, Cough GI: denies: Abdominal Pain, Nausea, Vomiting Skin: reports: Lesions (On her face.) Musculoskeletal: denies: Neck pain, Extremity pain Neurologic: reports: Headache (mild) PD PAST MEDICAL HISTORY - Past Medical History Cardiovascular: None Respiratory: Pneumonia Neuro: None Endocrine/Autoimmune: Other GI: Other HEALTH AND SAFETY CONSULTANT: Ovarian cysts : None HEENT: None Psych: Depression Musculoskeletal: Osteoarthritis, Fibromyalgia - Past Surgical History Past Surgical History: Yes /HEALTH AND SAFETY CONSULTANT: Hysterectomy, Oophrectomy - Present Medications Home Medications: Ambulatory Orders Medication Instructions Recorded Confirmed Gabapentin [Neurontin] 2 tab PO TID #40 tablet 12/10/17 Cyclobenzaprine [Flexeril] 10 mg PO TID PRN #20 tablet 05/23/18 DULoxetine [Cymbalta] 20 mg PO DAILY #10 capsule 05/23/18 11/15/18 Amoxicillin 500 mg PO TID #30 capsule 11/07/18 11/15/18 Benzonatate [Tessalon Perle] 100 - 200 mg PO TID PRN #30 capsule 11/07/1810/19 Cyclobenzaprine [Flexeril] 10 mg PO TID PRN #20 tablet 11/07/18 11/15/18 Gabapentin 600 mg PO TID #30 tablet 11/07/18 11/15/18 Sulfamethox/Trimeth 800/160 1 each PO BID #14 tablet 11/15/18 [Bactrim Ds 800/160] - Allergies Allergies/Adverse Reactions: Allergies Allergy/AdvReac Type Severity Reaction Status Date / Time codeine [Codeine] Allergy Mild swelling/it Verified 11/07/18 13:18 ch NSAIDS (Non-Steroidal Allergy Unknown Verified 11/15/18 10:27 Anti-Inflamma - Social History Does the pt smoke?: Yes Smoking Status: Current every day smoker Does the pt drink ETOH?: No Does the pt have substance abuse?: Yes - Immunizations Immunizations are current?: Yes - POLST Patient has POLST: No PD ED PE NORMAL - Vitals Vital signs reviewed: Yes (normal) - General General: Alert and oriented X 3, Well developed/nourished - HEENT HEENT: Atraumatic, EOMI, Pharynx benign, Other (There is an abscess on the left side of forehead of about 1.5 cm in diameter, with evidence of draining in the center. There is surrounding erythema. She also has multiple facial sores with evidence of picking. There is erythema at the tip of her nose.) - Neck Neck: Supple, no meningeal sign, No adenopathy - Cardiac Cardiac: RRR, No murmur - Respiratory Respiratory: No respiratory distress, Clear bilaterally - Abdomen Abdomen: Soft, Non tender - Derm Derm: No rash (Picking sores on face.) - Extremities Extremities: No edema, Other (No sores identified on the extremities.) - Neuro Neuro: Alert and oriented X 3, No motor deficit, Normal speech Results - Vitals Vitals: Vital Signs - 24 hr 11/15/18 10:25 Temperature 36.6 C Heart Rate 93 Respiratory 20 Rate Blood Pressure 128/85 H O2 Saturation 99 Oxygen O2 Source Room air - Labs Labs: Microbiology 11/15/18 10:45 Wound Culture - Preliminary Abscess Procedures - Abscess I&D (location) forehead Preparation: Betadine, Lidocaine 1%, With epi Incision: Incised with scalpel, Purulent drainage, Irrigated, Culture obtained Other: Pt tolerated well, Dressing applied, Antibiotic prescribed PD MEDICAL DECISION MAKING - ED course Complexity details: reviewed old records, considered differential, d/w patient ED course: The patient's presentation is significant for abscess on her forehead. Treatment in the emergency department included incision and drainage of the abscess. Culture and sensitivity is pending. Bactrim DS one tablet was administered orally. Ibuprofen 800 mg is administered orally. She is being discharged with prescription for Bactrim DS. I discussed with her the importance of outpatient follow-up, as well as potentially worrisome signs or symptoms that should prompt reevaluation in the emergency department. Departure - Departure Disposition: Home, Self Care Clinical Impression: Abscess Condition: Stable Instructions: ED Abscess IandD Follow-Up: Ben Treviño MD [Physician No Access] - Prescriptions: Sulfamethox/Trimeth 800/160 [Bactrim Ds 800/160] 1 each PO BID #14 tablet Comments: Clean the wound area daily with warm soapy water. Take Bactrim DS twice daily as prescribed. You can use ibuprofen, up to 800 mg 3 times daily if needed for pain. Follow-up with your primary physician within 2 weeks. Call to schedule an appointment. Return to the emergency department if you develop increasing redness, swelling, fever with shaking chills, or otherwise worsening symptoms. Discharge Date/Time: 11/15/18 11:29
== END 2018-11-15 11:29 | disposition home or self-care (01) ==
LOC: ED 10:18
DX: L02.01 Cutaneous abscess of face (principal); F17.200 Nicotine dependence, unspecified, uncomplicated
CPT/HCPCS: 10060; 87070; 87181; 87205; 99283; A9270

== ENCOUNTER 2019-01-15 21:32 | Emergency (ER) | payer MEDICAID ==
--- NOTE | 2019-01-15 23:41 | ED Physician Documentation ---
PD HPI UPPER EXT INJURY - Stated complaint Stated Complaint: L WRIST PX - Chief complaint Chief Complaint: Ext Problem - History obtained from History obtained from: Patient - History of Present Illness Location: Left, Wrist (states some pain in left wrist, no abrupt injury. Feels from carrying her bags. She is also having left gluteal area pain progressively through the day, also without noted injury. Denies back pain per se. No skin sores in gluteal area. States she has left axillary lump c/w early abscess that she has had a lot in the past.) Type of injury: No: Fall, Twist Timing - onset: How many days ago (1-2) Timing - duration: Days (1-2) Timing - details: Gradual onset, Still present Worsened by: Moving, Palpating Associated symptoms: No: Weakness, Numbness Recently seen: Emergency Dept (for skin abscess on face that had I&D and is better.) Review of Systems Constitutional: denies: Fever, Chills, Myalgias Nose: denies: Rhinorrhea / runny nose, Congestion Throat: denies: Sore throat Respiratory: denies: Cough GI: denies: Abdominal Pain, Nausea, Vomiting Skin: reports: Lesions (superficial skin sores often.) PD PAST MEDICAL HISTORY - Past Medical History Past Medical History: Yes Cardiovascular: None Respiratory: Pneumonia Neuro: None Endocrine/Autoimmune: Other GI: Other GROUP CAPTAIN: Ovarian cysts : None HEENT: None Psych: Depression Musculoskeletal: Osteoarthritis, Fibromyalgia - Past Surgical History Past Surgical History: Yes /GROUP CAPTAIN: Hysterectomy, Oophrectomy - Present Medications Home Medications: Ambulatory Orders Medication Instructions Recorded Confirmed Gabapentin [Neurontin] 2 tab PO TID #40 tablet 12/10/17 Cyclobenzaprine [Flexeril] 10 mg PO TID PRN #20 tablet 05/23/18 DULoxetine [Cymbalta] 20 mg PO DAILY #10 capsule 05/23/18 11/15/18 Amoxicillin 500 mg PO TID #30 capsule 11/07/18 11/15/18 Benzonatate [Tessalon Perle] 100 - 200 mg PO TID PRN #30 capsule 11/07/18 11/15/18 Cyclobenzaprine [Flexeril] 10 mg PO TID PRN #20 tablet 11/07/18 11/15/18 Gabapentin 600 mg PO TID #30 tablet 11/07/18 11/15/18 Sulfamethox/Trimeth 800/160 1 each PO BID #14 tablet 11/15/18 [Bactrim Ds 800/160] Benzonatate [Tessalon Perle] 100 mg PO TID PRN #30 capsule 01/16/19 Chlorhexidine Gluconate [Hibiclens] 15 ml TP DAILY #236 ml 01/16/19 Cyclobenzaprine [Flexeril] 10 mg PO TID PRN #20 tablet 01/16/19 Gabapentin 1,200 mg PO TID #30 tablet 01/16/19 Sulfamethox/Trimeth 800/160 1 each PO BID #20 tablet 01/16/19 [Bactrim Ds 800/160] - Allergies Allergies/Adverse Reactions: Allergies Allergy/AdvReac Type Severity Reaction Status Date / Time codeine [Codeine] Allergy Mild swelling/it Verified 11/07/18 13:18 ch NSAIDS (Non-Steroidal Allergy Unknown Verified 11/15/18 10:27 Anti-Inflamma - Social History Does the pt smoke?: Yes Smoking Status: Current every day smoker Does the pt drink ETOH?: No Does the pt have substance abuse?: Yes - Immunizations Immunizations are current?: Yes - POLST Patient has POLST: No PD ED PE NORMAL - Vitals Vital signs reviewed: Yes - General General: Alert and oriented X 3, Well developed/nourished, Other (appears in pain) - Neck Neck: Supple, no meningeal sign, No adenopathy - Cardiac Cardiac: RRR, No murmur - Respiratory Respiratory: Clear bilaterally - Abdomen Abdomen: Soft, Non tender - Back Back: No spinal TTP - Derm Derm: Normal color, Warm and dry, Other (left axilla with small lump c/w early abscess. left gluteal area with tenderness, without redness, skin sores, nor obvious swelling. ) - Extremities Extremities: No tenderness to palpate, Normal ROM s pain - Neuro Neuro: Alert and oriented X 3, No motor deficit, No sensory deficit Results - Vitals Vitals: Vital Signs - 24 hr 01/15/19 01/15/19 01/16/19 21:43 23:19 01:37 Temperature 36.5 C 37 C Heart Rate 82 80 81 Respiratory 18 16 Rate Blood Pressure 147/86 H 140/81 H 145/68 H O2 Saturation 97 98 99 Oxygen O2 Source Room air - Rads (name of study) pelvic CT Radiology: Prelim report reviewed (no soft tissue fluid collections nor edema.), EMP read contemporaneously, See rad report PD MEDICAL DECISION MAKING - ED course Complexity details: considered differential (severe pain in gluteal area and tender there, so does not seem sciatic. with her history of skin abscesses, concern for deep space abscess so got CT scan, which was normal. ), d/w patient Departure - Departure Disposition: 01 Home, Self Care Clinical Impression: Gluteal pain, Abscess of axillary region Condition: Stable Record reviewed to determine appropriate education?: Yes Follow-Up: Ben Treviño MD [Primary Care Provider] - Prescriptions: Benzonatate [Tessalon Perle] 100 mg PO TID PRN #30 capsule PRN Reason: Cough Chlorhexidine Gluconate [Hibiclens] 15 ml TP DAILY #236 ml Cyclobenzaprine [Flexeril] 10 mg PO TID PRN #20 tablet PRN Reason: Spasms Gabapentin 1,200 mg PO TID #30 tablet Sulfamethox/Trimeth 800/160 [Bactrim Ds 800/160] 1 each PO BID #20 tablet Comments: Continue usual medications of the gabapentin and Flexeril. Use Tylenol 4 times a day as needed for pains. Use Bactrim twice daily for the axillary and skin infections. Hibiclens antiseptic wash for your whole body. Follow-up with your primary care in the next few days, call for an appointment. Further medications per your primary care. Discharge Date/Time: 01/16/19 01:37
[2019-01-15] MEDS ORDERED: oxyCODONE 5 MG TABLET PO STA (23:55)
[2019-01-15] MEDS ORDERED: GABAPENTIN 100 MG CAPSULE PO STA (23:55)
[2019-01-15] MEDS ORDERED: CYCLOBENZAPRINE 10 MG TABLET PO STA (23:55)
[2019-01-15] MEDS ORDERED: traMADol 50 MG TABLET PO STA (23:55)
[2019-01-16] MEDS ORDERED: GABAPENTIN 400 MG CAPSULE ONE (00:34)
--- NOTE | 2019-01-16 00:48 | CT Report ---
Reason: left gluteal pain; history of skin abscess Procedure Date: 01/16/2019 Accession Number: [id number] / [id number] Procedure: CT - PELVIS WO CPT Code: FULL RESULT: EXAM: CT BONY PELVIS WITHOUT CONTRAST EXAM DATE: 01/16/2019 12:30 AM. CLINICAL HISTORY: Left gluteal pain; history of skin abscess. COMPARISON: ABDOMEN/PELVIS W/ 11/20/2016 7:50 PM. TECHNIQUE: Thin-section axial images were acquired of the pelvis without contrast. Post-processing: Coronal and sagittal reformats. Other: None. In accordance with CT protocol optimization, one or more of the following dose reduction techniques were utilized for this exam: automated exposure control, adjustment of mA and/or KV based on patient size, or use of iterative reconstructive technique. FINDINGS: Bones: No fracture or bone lesion. Sacroiliac Joints: No widening, erosions, or sclerosis. Symphysis Pubis: Unremarkable. Right Hip: The joint space is preserved. No calcified loose bodies. Left Hip: The joint space is preserved. No calcified loose bodies. Musculature: Normal. No fatty atrophy. Pelvic Cavity: The visualized bowel, bladder, and reproductive organs are unremarkable on this noncontrast exam. Other: No lymphadenopathy. No free air or free fluid. The other visualized soft tissues are unremarkable. There are no lesions in the upper thighs. IMPRESSION: Negative CT scan of the pelvis. [facility]
[2019-01-16] MEDS ORDERED: oxyCODONE/ACET 5/325 Prepack 4 PO STA (00:58)
[2019-01-16] MEDS ORDERED: SULFAMETH/TRIMETH DS 800/160 MG TABLET PO STA (01:24)
[2019-01-16 01:38] VITALS: BP 145/68
== END 2019-01-16 01:37 | disposition home or self-care (01) ==
LOC: ED 21:32
DX: M53.3 Sacrococcygeal disorders, not elsewhere classified (principal); L02.412 Cutaneous abscess of left axilla; F17.200 Nicotine dependence, unspecified, uncomplicated
CPT/HCPCS: 72192; 99283; A9270

== ENCOUNTER 2019-01-21 22:32 | Outpatient (CLI) | payer MEDICAID | END 2019-01-21 22:33 | disposition critical access hospital (66) | LOC: EMS 22:32 | PROVIDERS: ATTEND Surgery | DX: R46.89 Other symptoms and signs involving appearance and behavior (principal); R41.82 Altered mental status, unspecified | CPT/HCPCS: A0425; A0429; A0999 ==

== ENCOUNTER 2019-01-21 22:50 | Emergency (ER) | payer MEDICAID ==
[2019-01-21 22:58] VITALS: BP 146/88
[2019-01-22] MEDS ORDERED: CYCLOBENZAPRINE 10 MG TABLET PO STA (01:39)
[2019-01-22] MEDS ORDERED: GABAPENTIN 100 MG CAPSULE PO STA (01:40)
[2019-01-22] MEDS ORDERED: traMADol 50 MG TABLET PO STA (01:40)
[2019-01-22 02:05] LABS: BASOPHILS % (AUTO) 0.2 %; EOSINOPHILS % (AUTO) 0.2 %; HGB - HEMOGLOBIN 11.9 g/dL (12.0-16.0); LYMPHOCYTES # (AUTO) 2.4 10^3/uL (1.5-3.5); LYMPHOCYTES % (AUTO) 16.3 %; MEAN CORPUSCULAR HEMOGLOBIN 29.6 pg (27.0-31.0); MEAN CORPUSCULAR HGB CONC 33.3 g/dL (32.0-36.0); MEAN CORPUSCULAR VOLUME 88.9 fL (81.0-99.0); MEAN PLATELET VOLUME 7.4 fL (7.9-10.8); MONOCYTES # (AUTO) 1.1 10^3/uL (0.0-1.0); MONOCYTES % (AUTO) 7.4 %; NEUTROPHILS # (AUTO) 11.1 10^3/uL (1.5-6.6); NEUTROPHILS % (AUTO) 75.9 %; PLT - PLATELET COUNT 515 10^3/uL (130-450); RED BLOOD COUNT 4.03 10^6/uL (4.20-5.40); RED CELL DISTRIBUTION WIDTH 14.4 % (12.0-15.0); WHITE BLOOD COUNT 14.6 x10^3/uL (4.8-10.8)
[2019-01-22] MEDS ORDERED: GABAPENTIN 400 MG CAPSULE ONE (02:05)
[2019-01-22 02:15] LABS: ALBUMIN 4.7 g/dL (3.2-5.5); ALBUMIN/GLOBULIN RATIO 1.6 (1.0-2.2); ALKALINE PHOSPHATASE 85 IU/L (42-121); ALT ALANINE AMINOTRANSFERASE 21 IU/L (10-60); AST ASPARTATE AMINOTRANSFERASE 29 IU/L (10-42); BILIRUBIN,TOTAL 0.6 mg/dL (0.2-1.0); BUN - BLOOD UREA NITROGEN 15 mg/dL (6-20); CALCIUM 9.5 mg/dL (8.5-10.3); CARBON DIOXIDE - CO2 22 mmol/L (21-32); CHLORIDE 100 mmol/L (101-111); CREATININE 0.6 mg/dL (0.4-1.0); GFR - MDRD 110 (>89); GLUCOSE 121 mg/dL (70-100); LIPASE 25 U/L (22-51); SODIUM 137 mmol/L (135-145); TOTAL PROTEIN 7.6 g/dL (6.7-8.2)
[2019-01-22] MEDS ORDERED: POTASSIUM BICARB 25 MEQ TABLET PO STA ×2 (05:58→06:28)
--- NOTE | 2019-01-22 06:59 | ED Physician Documentation ---
History of Present Illness - Stated complaint Stated Complaint: JUMPY S/P METH - Chief complaint Chief Complaint: MHE - History obtained from History obtained from: Patient, EMS - History of Present Illness Timing: Today - Additonal information Additional information: 43-year-old female who does admit to use of meth has been in the street last night and she was not making sense and please asked the medics to bring her to the hospital. The medics indicated that the patient appeared to asked to go to the hospital when she was apprehended by the police. The patient is not able to give adequate history about why she is here. Review of Systems Unable to obtain: Confused Constitutional: denies: Fever Eyes: denies: Decreased vision Ears: denies: Ear pain Nose: denies: Congestion Throat: denies: Sore throat Cardiac: denies: Chest pain / pressure Respiratory: denies: Dyspnea, Cough GI: denies: Abdominal Pain, Nausea, Vomiting : denies: Dysuria, Frequency Skin: denies: Rash Musculoskeletal: reports: Back pain. denies: Neck pain Neurologic: denies: Generalized weakness, Focal weakness, Numbness PD PAST MEDICAL HISTORY - Past Medical History Past Medical History: Yes Cardiovascular: None Respiratory: Pneumonia Neuro: None Endocrine/Autoimmune: Other GI: Other CORE FEEDER: Ovarian cysts : None HEENT: None Psych: Depression Musculoskeletal: Osteoarthritis, Fibromyalgia - Past Surgical History Past Surgical History: Yes /CORE FEEDER: Hysterectomy, Oophrectomy - Present Medications Home Medications: Ambulatory Orders Medication Instructions Recorded Confirmed Sulfamethox/Trimeth 800/160 1 each PO BID #14 tablet 11/15/18 [Bactrim Ds 800/160] Benzonatate [Tessalon Perle] 100 mg PO TID PRN #30 capsule 01/16/19 Cyclobenzaprine [Flexeril] 10 mg PO TID PRN #20 tablet 01/16/19 Gabapentin 1,200 mg PO TID #30 tablet 01/16/19 - Allergies Allergies/Adverse Reactions: Allergies Allergy/AdvReac Type Severity Reaction Status Date / Time codeine [Codeine] Allergy Mild swelling/it Verified 01/21/19 22:59 ch NSAIDS (Non-Steroidal Allergy Unknown Verified 01/21/19 22:59 Anti-Inflamma - Social History Does the pt smoke?: Yes Smoking Status: Current every day smoker Does the pt drink ETOH?: Yes Does the pt have substance abuse?: Yes Substance Use and Type: Marijuana, Meth - Immunizations Immunizations are current?: Yes - POLST Patient has POLST: No PD ED PE NORMAL - Vitals Vital signs reviewed: Yes (tachy and hypertensive) - General General: Alert and oriented X 3, No acute distress, Well developed/nourished - HEENT HEENT: Atraumatic, PERRL, EOMI, Ears normal, Moist mucous membranes - Neck Neck: Supple, no meningeal sign, No bony TTP - Cardiac Cardiac: No murmur, Other (tachy to 110) - Respiratory Respiratory: No respiratory distress, Clear bilaterally - Abdomen Abdomen: Soft, Non tender - Derm Derm: Normal color, Warm and dry, No rash - Extremities Extremities: No deformity, No edema, Other (feet smell) - 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, No motor deficit, No sensory deficit, Other (speech exhibits thought disorder) Eye Opening: Spontaneous Motor: Obeys Commands Verbal: Oriented GCS Score: 15 - Psych Psych: Normal mood, Normal affect Results - Vitals Vitals: Vital Signs - 24 hr 01/21/19 01/21/19 01/22/19 22:50 23:01 00:34 Temperature 37.6 C H Heart Rate 113 H 110 H Respiratory 16 16 16 Rate Blood Pressure 146/88 H O2 Saturation 99 96 Oxygen O2 Source Room air - Labs Labs: Laboratory Tests 01/22/19 01/22/19 01/22/19 01:55 01:55 01:55 WBC 14.6 H RBC 4.03 L Hgb 11.9 L Hct 35.8 L MCV 88.9 MCH 29.6 MCHC 33.3 RDW 14.4 Plt Count 515 H MPV 7.4 L Neut # (Auto) 11.1 H Lymph # (Auto) 2.4 [place] # (Auto) 1.1 H Eos # (Auto) 0.0 Baso # (Auto) 0.0 Absolute Nucleated RBC 0.00 Nucleated RBC % 0.0 Sodium 137 Potassium 2.9 L Chloride 100 L Carbon Dioxide 22 Anion Gap 15.0 H BUN 15 Creatinine 0.6 Estimated GFR (MDRD) 110 Glucose 121 H Calcium 9.5 Total Bilirubin 0.6 AST 29 ALT 21 Alkaline Phosphatase 85 Troponin I < 0.04 Total Protein 7.6 Albumin 4.7 Globulin 2.9 Albumin/Globulin Ratio 1.6 Lipase 25 Ethyl Alcohol < 5.0 PD MEDICAL DECISION MAKING - ED course Complexity details: reviewed results, re-evaluated patient, considered differential, d/w patient ED course: 43-year-old female who appears to have overdone with methamphetamine is boarded in the emergency department overnight she is found to be hypokalemic is administered 50 mEq of potassium bicarbonate. Departure - Departure Disposition: 01 Home, Self Care Clinical Impression: Hypokalemia Condition: Stable Instructions: ED Diet High Potassium, ED Potassium Deficiency Follow-Up: Ben Treviño MD [Primary Care Provider] -
== END 2019-01-22 07:59 | disposition home or self-care (01) ==
LOC: EDUNIT# → ED 22:50
DX: E87.6 Hypokalemia (principal); F17.200 Nicotine dependence, unspecified, uncomplicated; F15.90 Other stimulant use, unspecified, uncomplicated
CPT/HCPCS: 36415; 80053; 80320; 83690; 84484; 85025; 99283; 99284; A9270

== ENCOUNTER 2019-02-06 11:28 | Emergency (ER) | payer MEDICAID ==
[2019-02-06 11:40] VITALS: BP 134/80
--- NOTE | 2019-02-06 12:14 | ED Physician Documentation ---
History of Present Illness - Stated complaint Stated Complaint: WRIST PX/WEAKNESS - Chief complaint Chief Complaint: General - History obtained from History obtained from: Patient - History of Present Illness Timing: Yesterday (L wrist pain, popping sensation and burning pain. Started with lifting heavy things. Started yesterday. 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 : None HEENT: None Psych: Depression Musculoskeletal: Osteoarthritis, Fibromyalgia - Past Surgical History Past Surgical History: Yes /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: Hysterectomy, Oophrectomy - Present Medications Home Medications: Ambulatory Orders Medication Instructions Recorded Confirmed Cyclobenzaprine [Flexeril] 10 mg PO TID PRN #20 tablet 01/16/19 02/06/19 Gabapentin 1,200 mg PO TID #30 tablet 01/16/19 02/06/19 Doxycycline Hyclate 100 mg PO BID #20 capsule 02/06/19 FLUoxetine [PROzac] 10 mg PO DAILY 02/06/19 02/06/19 - Allergies Allergies/Adverse Reactions: Allergies Allergy/AdvReac Type Severity Reaction Status Date / Time codeine [Codeine] Allergy Mild swelling/it Verified 02/06/19 11:40 ch NSAIDS (Non-Steroidal Allergy Unknown Verified 02/06/19 11:40 Anti-Inflamma - Social History Does the pt smoke?: Yes Smoking Status: Current every day smoker Does the pt drink ETOH?: No Does the pt have substance abuse?: Yes - Immunizations Immunizations are current?: Yes - POLST Patient has POLST: No PD ED PE NORMAL - Vitals Vital signs reviewed: Yes - General General: Alert and oriented X 3, No acute distress - HEENT HEENT: Other (Nickel sized pointed abscess L anabaptism) - Extremities Extremities: Other (Mild tenderness to the distal radial wrist and positive de Quervain's testing. There is no warmth or redness, no passive limited range of motion.) - Neuro Neuro: Alert and oriented X 3, Normal speech - Psych Psych: Normal mood, Normal affect Results - Vitals Vitals: Vital Signs - 24 hr 02/06/19 11:36 Temperature 36.2 C L Heart Rate 80 Respiratory 20 Rate Blood Pressure 134/80 H O2 Saturation 98 Oxygen O2 Source Room air Procedures - Abscess I&D (location) forehead Preparation: Alcohol, Lidocaine 1%, With epi Incision: Incised with scalpel, Purulent drainage, Loculations broken, Culture obtained. No: Packed Other: Pt tolerated well, Antibiotic prescribed Departure - Departure Disposition: 01 Home, Self Care Clinical Impression: Abscess, De Quervain's tenosynovitis, left Condition: Good Record reviewed to determine appropriate education?: Yes Instructions: ED Abscess IandD, ED De Quervain Tenosynovitis Prescriptions: Doxycycline Hyclate 100 mg PO BID #20 capsule Comments: We are performing a wound culture, the results should be done in 48-72 hours. If antibiotic change is necessary we will call you. Return if worse in the meantime, especially if you develop increased pain, fevers, cannot keep down the medication. Otherwise follow-up with your physician in approximately 2-3 days.
[2019-02-06] MEDS ORDERED: DOXYCYCLINE 100 MG TABLET PO STA (12:25)
[2019-02-06] MEDS ORDERED: traMADol 50 MG TABLET PO STA (12:34)
[2019-02-06] MEDS ORDERED: ACETAMINOPHEN 500 MG TABLET PO STA (12:34)
== END 2019-02-06 12:48 | disposition home or self-care (01) ==
LOC: ED 11:28
DX: M65.4 Radial styloid tenosynovitis [de Quervain] (principal); L02.01 Cutaneous abscess of face; F17.200 Nicotine dependence, unspecified, uncomplicated
CPT/HCPCS: 10060; 87070; 87205; 99283; A9270; 87181

== ENCOUNTER 2019-04-28 11:35 | Outpatient (CLI) | payer MEDICAID | END 2019-04-28 11:36 | disposition critical access hospital (66) | LOC: EMS 11:35 | PROVIDERS: ATTEND Surgery | DX: R41.82 Altered mental status, unspecified (principal) | CPT/HCPCS: A0425; A0429; A0999 ==

== ENCOUNTER 2019-04-28 11:55 | Emergency (ER) | payer MEDICAID ==
[2019-04-28 12:00] VITALS: BP 103/59
--- NOTE | 2019-04-28 12:19 | ED Physician Documentation ---
PD HPI ALTERED MENTAL STATUS - Stated complaint Stated Complaint: AMS - Chief complaint Chief Complaint: MHE - History obtained from History obtained from: Patient, EMS, Police - History of Present Illness Timing - onset: Today (I guess she was picked up by police. She is really uncooperative with me, when I asked her I can help her, she only replies "I need water" repeatedly. She has no specific complaints other than being thirsty. Per the nurse's notes she is hallucinating. She does nod when I asked her if she is methamphetamines today. 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, Oophrectomy - Present Medications Home Medications: Ambulatory Orders Medication Instructions Recorded Confirmed Cyclobenzaprine [Flexeril] 10 mg PO TID PRN #20 tablet 01/16/19 02/06/19 Gabapentin 1,200 mg PO TID #30 tablet 01/16/19 02/06/19 Doxycycline Hyclate 100 mg PO BID #20 capsule 02/06/19 FLUoxetine [PROzac] 10 mg PO DAILY 02/06/19 02/06/19 - Allergies Allergies/Adverse Reactions: Allergies Allergy/AdvReac Type Severity Reaction Status Date / Time codeine [Codeine] Allergy Mild swelling/it Verified 02/06/19 11:40 ch NSAIDS (Non-Steroidal Allergy Unknown Verified 04/28/19 12:00 Anti-Inflamma - Social History Does the pt smoke?: Yes Smoking Status: Current every day smoker Does the pt drink ETOH?: No Does the pt have substance abuse?: Yes - Immunizations Immunizations are current?: Yes - POLST Patient has POLST: No PD ED PE NORMAL - Vitals Vital signs reviewed: Yes - General General: Other (She is alert and oriented to person and place but will not cooperate with time questions.) - HEENT HEENT: EOMI, Pharynx benign - Neck Neck: Supple, no meningeal sign, No bony TTP - Cardiac Cardiac: No murmur, Other (tachycardic) - Respiratory Respiratory: No respiratory distress, Clear bilaterally - Back Back: No CVA TTP, No spinal TTP - Derm Derm: Normal color, Warm and dry, Other (many picked at skin lesions, no obvious infections) - Neuro Neuro: No motor deficit, No sensory deficit Results - Vitals Vitals: Vital Signs - 24 hr 04/28/19 11:57 Temperature 36.8 C Heart Rate 134 H Respiratory 20 Rate Blood Pressure 103/59 L O2 Saturation 96 Oxygen O2 Source Room air PD MEDICAL DECISION MAKING - ED course ED course: This is a 44-year-old woman who is well-known to ED who presents by ambulance for apparent methamphetamine intoxication. She was allowed to sober up for a while in the department in a safe place and continue to have no specific complaint and requested discharge. Departure - Departure Disposition: 01 Home, Self Care Clinical Impression: Methamphetamine intoxication Condition: Stable Record reviewed to determine appropriate education?: Yes Health Concerns: methamphetamines Plan of Treatment: stop meth Care Goals: stop meth Assessment: as above Instructions: Abuse Meth Abuse and Addiction, ED Drug Abuse General Comments: Stop using drugs, I promised your life will get better if you do.
== END 2019-04-28 13:26 | disposition home or self-care (01) ==
LOC: ED 11:55
DX: F15.129 Other stimulant abuse with intoxication, unspecified (principal); F17.200 Nicotine dependence, unspecified, uncomplicated
CPT/HCPCS: 99283; 99284

== ENCOUNTER 2019-04-28 23:04 | Emergency (ER) | payer MEDICAID, OTHER ==
[2019-04-28 23:08] VITALS: BP 142/103
--- NOTE | 2019-04-28 23:12 | ED Physician Documentation ---
History of Present Illness - Stated complaint Stated Complaint: FIT FOR CONFINEMENT - Chief complaint Chief Complaint: General - History obtained from History obtained from: Police - History of Present Illness Timing: How many hours ago (2-3) - Additonal information Additional information: 44-year-old woman who is a known methamphetamine user. She was actually seen here earlier today and discharged. She presents tonight under arrest in the custody of police for trespassing at a retail establishment and was supposedly seen using methamphetamine. The witness who saw this was not available to say how the patient had used it whether she had injected, smoked or snorted it. She has been in the custody of the county health officer for 2 to 3 hours they were just concerned that the methamphetamine recently has been adulterated with fentanyl and did not want to put her in [facility] without a medical clearance. Patient herself is very odd acting. When I introduced myself she burst out laughing hysterically at my last name. She was not forthcoming with any information about what had transpired tonight. 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, Oophrectomy - Present Medications Home Medications: Ambulatory Orders Medication Instructions Recorded Confirmed Cyclobenzaprine [Flexeril] 10 mg PO TID PRN #20 tablet 01/16/19 02/06/19 RX: Gabapentin 1,200 mg PO TID #30 tablet 01/16/19 02/06/19 FLUoxetine [PROzac] 10 mg PO DAILY 02/06/19 02/06/19 RX: Doxycycline Hyclate 100 mg PO BID #20 capsule 02/06/19 - Allergies Allergies/Adverse Reactions: Allergies Allergy/AdvReac Type Severity Reaction Status Date / Time codeine [Codeine] Allergy Mild swelling/it Verified 04/28/19 23:08 ch NSAIDS (Non-Steroidal Allergy Unknown Verified 04/28/19 23:08 Anti-Inflamma - Social History Does the pt smoke?: Yes Smoking Status: Current every day smoker Does the pt drink ETOH?: No Does the pt have substance abuse?: Yes - Immunizations Immunizations are current?: Yes - POLST Patient has POLST: No PD ED PE NORMAL - Vitals Vital signs reviewed: Yes - General General: Other (She is alert and knows that she is at [facility]. She cannot tell me the date. She is intermittently sitting up on the bed writhing around and then flopping back onto the bed.) - HEENT HEENT: PERRL, Other (Poor dentition with multiple broken teeth.) - Neck Neck: No adenopathy, Thyroid normal - Cardiac Cardiac: No murmur, Other (Tachycardic) - Respiratory Respiratory: No respiratory distress, Clear bilaterally - Abdomen Abdomen: Normal bowel sounds, Soft - Derm Derm: Other (Patient has a multitude of sores on her face with scabbing.) - Neuro Neuro: Other (Alert and oriented x2. No gross neurological deficits. She did ambulate.) Results - Vitals Vitals: Vital Signs - 24 hr 04/28/19 23:05 Temperature 36.3 C L Heart Rate 113 H Respiratory 16 Rate Blood Pressure 142/103 H O2 Saturation 100 Oxygen O2 Source Room air PD MEDICAL DECISION MAKING - ED course ED course: This patient is well-known to the police with long-standing history of meth abuse. They are concerned that she might have ingested fentanyl as well but she is been in the custody for 2-1/2 to 3 hours without any signs of respiratory depression. She is medically cleared for incarceration. Departure - Departure Disposition: 01 Home, Self Care Clinical Impression: Medical clearance for incarceration Condition: Good Instructions: ED Drug Abuse General Follow-Up: your,doctor [Other] Comments: Stop using illegal substances. Discharge Date/Time: 04/28/19 23:31
== END 2019-04-28 23:31 | disposition home or self-care (01) ==
LOC: ED 23:04
DX: F15.129 Other stimulant abuse with intoxication, unspecified (principal); F17.200 Nicotine dependence, unspecified, uncomplicated

== ENCOUNTER 2019-04-30 10:55 | Emergency (ER) | payer MEDICAID ==
[2019-04-30] MEDS ORDERED: traMADol 50 MG TABLET PO STA (13:13)
[2019-04-30] MEDS ORDERED: GABAPENTIN 100 MG CAPSULE PO STA (13:13)
[2019-04-30] MEDS ORDERED: CYCLOBENZAPRINE 10 MG TABLET PO STA (13:14)
--- NOTE | 2019-04-30 13:24 | ED Physician Documentation ---
History of Present Illness - Stated complaint Stated Complaint: NECK PX - Chief complaint Chief Complaint: Ext Problem - History obtained from History obtained from: Patient - History of Present Illness Timing: How many days ago (2) Pain level max: 8 Pain level now: 8 - Additonal information Additional information: 44-year-old female presents to the emergency department stating she was arrested 2 days ago and is feeling sore from this. She thinks that her left wrist might be broken. She has not taken her gabapentin in 2 days or her Flexeril or her tramadol. She is requesting doses of these medication here. No loss of consciousness. No neck or back pain. Was using methamphetamines allegedly 2 days ago when she was arrested. Worse with movement and better with rest. 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: Hysterectomy, Oophrectomy - Present Medications Home Medications: Ambulatory Orders Medication Instructions Recorded Confirmed Cyclobenzaprine [Flexeril] 10 mg PO TID PRN #20 tablet 01/16/19 02/06/19 Gabapentin 1,200 mg PO TID #30 tablet 01/16/19 02/06/19 Doxycycline Hyclate 100 mg PO BID #20 capsule 02/06/19 FLUoxetine [PROzac] 10 mg PO DAILY 02/06/19 02/06/19 - Allergies Allergies/Adverse Reactions: Allergies Allergy/AdvReac Type Severity Reaction Status Date / Time codeine [Codeine] Allergy Mild swelling/it Verified 04/30/19 11:10 ch NSAIDS (Non-Steroidal Allergy Unknown Verified 04/30/19 11:10 Anti-Inflamma - Social History Does the pt smoke?: Yes Smoking Status: Current every day smoker Does the pt drink ETOH?: No Does the pt have substance abuse?: Yes - Immunizations Immunizations are current?: Yes - POLST Patient has POLST: No PD ED PE NORMAL - Vitals Vital signs reviewed: Yes - General General: Alert and oriented X 3, No acute distress, Well developed/nourished - HEENT HEENT: PERRL, Ears normal, Moist mucous membranes - Neck Neck: Supple, no meningeal sign, No bony TTP (No midline tenderness to palpation. No step-off or deformity) - Cardiac Cardiac: RRR, Strong equal pulses - Respiratory Respiratory: No respiratory distress, Clear bilaterally - Abdomen Abdomen: Soft, Non tender, Non distended - Back Back: No spinal TTP (No midline tenderness to palpation. No step-off or deformity) - Derm Derm: Warm and dry - Extremities Extremities: No deformity, Other (Tender to palpation diffusely about the left wrist. Using the wrist freely. Neurovascularly intact. Contusion to the left elbow.) - Neuro Neuro: Alert and oriented X 3 - Psych Psych: Normal mood, Normal affect Results - Vitals Vitals: Vital Signs - 24 hr 04/30/19 04/30/19 11:07 14:27 Temperature 36.2 C L Heart Rate 101 H 87 Respiratory 16 16 Rate Blood Pressure 133/92 H 116/73 O2 Saturation 93 99 Oxygen O2 Source Room air - Rads (name of study) Left wrist x-ray Radiology: Prelim report reviewed, EMP read contemporaneously, See rad report (No acute findings) PD MEDICAL DECISION MAKING - ED course Complexity details: reviewed results, re-evaluated patient, considered differential, d/w patient ED course: Patient with soft tissue contusions. Negative x-ray. Given her regular dose of tramadol, Flexeril and gabapentin here. We will have her follow-up with her doctor for further care. No emergency medical condition at this time. Patient counseled regarding signs and symptoms for which I believe and urgent re- evaluation would be necessary. Patient with good understanding of and agreement to plan and is comfortable going home at this time This document was made in part using voice recognition software. While efforts are made to proofread this document, sound alike and grammatical errors may occur. Departure - Departure Disposition: 01 Home, Self Care Clinical Impression: Wrist pain, left, Contusion of soft tissue Condition: Good Instructions: ED Contusion Soft Tissue Follow-Up: your,doctor in 1 week [Other] Comments: Continue your current medications at home. Follow-up with your doctor for any further refills. Your x-ray is normal today. Return if you worsen. Discharge Date/Time: 04/30/19 14:27
[2019-04-30] MEDS ORDERED: IBUPROFEN 800 MG TABLET PO STA (13:50)
[2019-04-30 14:27] VITALS: BP 116/73
--- NOTE | 2019-05-01 07:21 | XRAY Report ---
Reason: L wrist pain diffuse Procedure Date: 04/30/2019 Accession Number: [id number] / [id number] Procedure: XR - Wrist 4 View LT CPT Code: FULL RESULT: EXAM: LEFT WRIST RADIOGRAPHY EXAM DATE: 04/30/2019 01:27 PM. CLINICAL HISTORY: L wrist pain diffuse. COMPARISON: None. TECHNIQUE: 4 views. FINDINGS: Bones: Normal. No fractures or bone lesions. Joints: Normal. No subluxations. Soft Tissues: Unremarkable. No focal soft tissue swelling appreciated. IMPRESSION: Normal wrist radiography. No fracture or other acute osseous abnormality. [facility]
== END 2019-04-30 14:27 | disposition home or self-care (01) ==
LOC: ED 10:55
DX: S60.212A Contusion of left wrist, initial encounter (principal); S50.02XA Contusion of left elbow, initial encounter; X58.XXXA Exposure to other specified factors, initial encounter; F17.200 Nicotine dependence, unspecified, uncomplicated
CPT/HCPCS: 73110; 99283; 99284; A9270

== ENCOUNTER 2019-05-03 12:09 | Outpatient (CLI) | payer MEDICAID | END 2019-05-03 12:10 | disposition critical access hospital (66) | LOC: EMS 12:09 | PROVIDERS: ATTEND Surgery | DX: R50.9 Fever, unspecified (principal); R51 Headache; R10.32 Left lower quadrant pain | CPT/HCPCS: A0425; A0429; A0999 ==

== ENCOUNTER 2019-05-03 12:28 | Emergency (ER) | payer MEDICAID ==
[2019-05-03] MEDS ORDERED: CYCLOBENZAPRINE 10 MG TABLET PO STA (12:49)
[2019-05-03] MEDS ORDERED: IBUPROFEN 800 MG TABLET PO STA (12:49)
[2019-05-03] MEDS ORDERED: GABAPENTIN 100 MG CAPSULE PO STA ×2 (12:49→14:35)
[2019-05-03 12:57] LABS: BASOPHILS % (AUTO) 0.4 %; EOSINOPHILS % (AUTO) 0.5 %; HGB - HEMOGLOBIN 13.3 g/dL (12.0-16.0); LYMPHOCYTES # (AUTO) 1.8 10^3/uL (1.5-3.5); LYMPHOCYTES % (AUTO) 22.6 %; MEAN CORPUSCULAR HEMOGLOBIN 28.7 pg (27.0-31.0); MEAN CORPUSCULAR HGB CONC 33.8 g/dL (32.0-36.0); MEAN CORPUSCULAR VOLUME 84.7 fL (81.0-99.0); MONOCYTES # (AUTO) 0.6 10^3/uL (0.0-1.0); MONOCYTES % (AUTO) 7.4 %; NEUTROPHILS # (AUTO) 5.6 10^3/uL (1.5-6.6); NEUTROPHILS % (AUTO) 68.9 %; PLT - PLATELET COUNT 418 10^3/uL (130-450); RED BLOOD COUNT 4.64 10^6/uL (4.20-5.40); RED CELL DISTRIBUTION WIDTH 13.9 % (12.0-15.0); WHITE BLOOD COUNT 8.2 x10^3/uL (4.8-10.8)
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
[2019-05-03 13:08] LABS: ALBUMIN 4.9 g/dL (3.2-5.5); ALBUMIN/GLOBULIN RATIO 1.5 (1.0-2.2); BILIRUBIN,TOTAL 0.6 mg/dL (0.2-1.0); CALCIUM 10.1 mg/dL (8.5-10.3); CREATININE 0.9 mg/dL (0.4-1.0); TOTAL PROTEIN 8.1 g/dL (6.7-8.2)
[2019-05-03 13:55] LABS: MUDS CUTOFF CONCENTRATIONS CUTOFF CONC BELOW:
[2019-05-03 13:56] LABS: GLUCOSE, URINE (UA) NEGATIVE (NEGATIVE); KETONES,URINE (UA) TRACE mg/dL (NEGATIVE); LEUKOCYTE ESTERASE, URINE NEGATIVE (NEGATIVE); NITRITE,URINE NEGATIVE (NEGATIVE); OCCULT BLOOD,URINE NEGATIVE (NEGATIVE); PH,URINE 6.5 PH (5.0-7.5); PROTEIN,URINE >=300 mg/dL (NEGATIVE); UROBILINOGEN,URINE 1 (NORMAL) E.U./dL (NORMAL)
[2019-05-03 14:03] LABS: BILIRUBIN,URINE NEGATIVE (NEGATIVE); CLARITY,URINE HAZY (CLEAR); HCG UR QUAL NEGATIVE; ICTOTEST,URINE NEGATIVE
[2019-05-03 14:09] LABS: AMPHETAMINE SCREEN,URINE POSITIVE (NEGATIVE); BENZODIAZEPINES SCREEN, URINE POSITIVE (NEGATIVE); COCAINE SCREEN URINE NEGATIVE (NEGATIVE); METHADONE SCREEN, URINE NEGATIVE (NEGATIVE); METHAMPHETAMINES SCREEN, URINE POSITIVE (NEGATIVE); OPIATE SCREEN, URINE NEGATIVE (NEGATIVE); OXYCODONE SCREEN, URINE NEGATIVE (NEGATIVE); TRICYCLIC ANTIDEPRESSANT,URINE NEGATIVE (NEGATIVE)
[2019-05-03 14:10] LABS: PROPOXYPHENE SCREEN, URINE NEGATIVE (NEGATIVE)
[2019-05-03 14:15] LABS: BACTERIA,URINE Many /HPF (None Seen); MUCUS,URINE Marked Strands; RBC,URINE 0-5 /HPF (0-5); SQUAMOUS EPITHELIAL CELL,UR MANY Squamous (<= Few)
[2019-05-03] MEDS ORDERED: NITROFURANTOIN MACRO 100 MG CAPSULE PO STA (14:27)
[2019-05-03] MEDS ORDERED: traMADol 50 MG TABLET PO STA (14:35)
[2019-05-03 14:46] VITALS: BP 135/94
== END 2019-05-03 14:46 | disposition home or self-care (01) ==
LOC: EDUNIT# → ED 12:28
DX: N30.00 Acute cystitis without hematuria (principal); F17.200 Nicotine dependence, unspecified, uncomplicated
CPT/HCPCS: 36415; 80053; 80306; 81001; 81025; 83690; 85025; 99283; 99284; A9270; 81003; 87086